=== PATIENT | female | born 1955 | race Caucasian/White ===

== ENCOUNTER → 2020-11-01 11:11 | Outpatient (BNVA) | payer MEDICARE, SELFPAY | PROVIDERS: PCP Internal Medicine; Visit Provider Surgery Vascular Surgery | DX: I83.12 Varicose veins of left lower extremity with inflammation (principal) | CPT/HCPCS: 99202 ==

== ENCOUNTER 2020-11-08 13:03 | Outpatient (REF) | payer MEDICARE, SELFPAY ==
--- NOTE | ~2020-11-08 | US_ITS ---
EXAMINATION: RIGHT and LEFT LOWER EXTREMITY VENOUS ULTRASOUND (Reflux Exam) CLINICAL INDICATION: Left leg varicose veins. History of bilateral vein surgery COMPARISON: None. TECHNIQUE: Color flow triplex imaging and compression Doppler was performed to evaluate both the deep and the superficial systems bilaterally. To evaluate the superficial system, the examination was performed in the upright position. Color-flow Doppler ultrasound and compression ultrasound were utilized. In addition, maneuvers were utilized to demonstrate reflux. FINDINGS: 1. DEEP VENOUS ULTRASOUND OF THE RIGHT LOWER EXTREMITY: Respiratory variation, normal compression and augmented flow are noted in the right common femoral vein as well as the right popliteal vein and there is no evidence of deep venous thrombosis at these locations. There is deep venous reflux seen in the mid femoral vein measuring 0.4 seconds and the popliteal vein measuring 2.8 seconds.. There is no evidence of a Stock's cyst. 2. SUPERFICIAL ULTRASOUND WITH DOPPLER OF RIGHT LOWER EXTREMITY: The right great saphenous vein at the saphenofemoral junction measures 5 mm. The remainder of the right greater saphenous vein is not identified. There is no reflux demonstrated in the right great saphenous vein. The right small saphenous vein measures 3 mm and shows no reflux. There is a radial arm saw operator in the distal calf that measures 2 mm and does not demonstrate reflux. There are varicosities that arise from the remnant of the right greater saphenous vein. These measure between 2 to 3 mm from the thigh to the knee and demonstrate maximum 2.6 seconds reflux. 3. DEEP VENOUS ULTRASOUND OF THE LEFT LOWER EXTREMITY: Respiratory variation, normal compression and augmented flow are noted in the left common femoral vein as well as the left popliteal vein and there is no evidence of deep venous thrombosis at these locations. There is no evidence of reflux in the deep system in either the common femoral vein or the popliteal vein. . There is no evidence of a Stock's cyst. 4. SUPERFICIAL ULTRASOUND WITH DOPPLER OF LEFT LOWER EXTREMITY: Left great saphenous vein is not identified. There is no reflux demonstrated in the left great saphenous vein. The left small saphenous vein is not identified. There is a radial arm saw operator in the proximal thigh that measures 2 mm and does not demonstrate reflux. There are multiple left leg small varicosities measuring 2 mm. There is reflux seen measuring 1.5 seconds in the mid thigh and 0.7 seconds in the distal thigh. US/US venous duplex LE BI IMPRESSION: 1. No evidence of DVT. Right deep venous reflux in the mid femoral and popliteal veins. 2. Greater saphenous veins not identified. Bilateral varicosities with reflux.
== END 2020-11-08 13:04 | disposition home or self-care (01) ==
LOC: HO.US 13:03
PROVIDERS: Visit Provider Surgery Vascular Surgery
DX: I83.12 Varicose veins of left lower extremity with inflammation (principal); I83.893 Varicose veins of bilateral lower extremities with other complications
CPT/HCPCS: 93970

== ENCOUNTER → 2020-11-22 13:52 | Outpatient (BNVA) | payer MEDICARE, SELFPAY | PROVIDERS: PCP Internal Medicine; Visit Provider Surgery Vascular Surgery | DX: I83.12 Varicose veins of left lower extremity with inflammation (principal) | CPT/HCPCS: Q3014 ==

== ENCOUNTER 2021-09-08 14:12 | Outpatient (REF) | payer MEDICARE, SELFPAY ==
--- NOTE | ~2021-09-08 | CT_ITS ---
EXAMINATION: CT CHEST WITHOUT CONTRAST CLINICAL INFORMATION: Pulmonary nodules COMPARISON: Previous CT of the abdomen and pelvis 09/04/2021 TECHNIQUE: Multidetector volumetric CT imaging of the chest was done. Axial MIP volume rendering provided. Sagittal and coronal reformatted images were obtained. This CT examination was performed using dose optimization techniques as appropriate, variously including the following: *Automated exposure control *Adjustment of mA and/or kV according to patient size (this includes techniques or standardized protocols for targeted exams where dose is matched to indication/reason for exam; i.e. extremities or head) *Use of iterative reconstruction technique DLP: 170 mGy-cm FINDINGS: LUNGS: There is left upper lobe and lingular linear scarring or subsegmental atelectasis. There are numerous small left-sided calcified pulmonary nodules. Largest pulmonary nodule measures 3 mm . MEDIASTINUM: The thyroid gland has been removed. The heart does not appear enlarged. There is mild coronary artery. There is a small pericardial effusion. The thoracic aorta is normal in caliber. No enlarged lymph nodes are seen. PLEURA: There is no pleural effusion. No pleural mass or thickening. AXILLA: No enlarged lymph nodes or chest wall mass. UPPER ABDOMEN: The gallbladder has been removed. There is bilateral renal cortical thinning or scarring. There is a 4 mm stone in the upper pole of the right kidney. There is a partially visualized 1.5 cm right renal cyst. OSSEOUS STRUCTURES: There is scoliosis and degenerative changes of the spine. CT/CT chest wo con IMPRESSION: Left upper lobe and lingular scarring or subsegmental atelectasis. Numerous small calcified left pulmonary nodules probably representing old granulomatous disease. Stable abdominal findings from recent CT scan. Fleischner guidelines were followed.
== END 2021-09-08 14:13 | disposition home or self-care (01) ==
LOC: HO.CT 14:12
PROVIDERS: Visit Provider Internal Medicine
DX: R91.1 Solitary pulmonary nodule (principal)
CPT/HCPCS: 71250

== ENCOUNTER 2021-09-27 12:52 | Outpatient (REF) | payer OTHER, SELFPAY ==
--- NOTE | ~2021-09-27 | MM_ITS ---
EXAMINATION: MM SCREENING DIGITAL BREAST TOMOSYNTHESIS, BILATERAL CLINICAL INFORMATION: Screening. Asymptomatic. The lifetime risk of breast cancer based on the Tyrer-Cuzick Model is 5%. COMPARISON: Mammography: 09/29/2015, 09/09/2014 TECHNIQUE: Digital breast tomosynthesis is performed in both the craniocaudal and mediolateral oblique views along with computer-aided detection (CAD). Synthesized 2D images are generated from the tomosynthesis. FINDINGS: There are scattered areas of fibroglandular density (ACR BI-RADS breast composition Category b). Left breast appears similar to prior exam. There is no interval mass or architectural abnormality or abnormal calcifications. The bilateral axilla and skin contours are unremarkable. Right breast has new 1 cm mass with fine spiculated margin mid upper outer quadrant. Patient will be recalled for additional imaging. There is a smooth nodule within 2 cm anterior to the mass which is similar to prior exam and may have a notch-like lymph node hilus suggesting an intramammary node. The right breast also has loosely grouped heterogeneous calcifications central 9:30 o'clock position right breast, some of the calcifications may be vascular. They are mildly increased since prior study. MM/MM tomosynthesis screening BI IMPRESSION: Right: -New 1 cm nodule with fine spiculation mid upper outer quadrant. -Probable intramammary node 2 cm anterior to the new nodule. -Increased calcifications mid 9:30 o'clock position, possibly vascular. Left: -No mammographic evidence of malignancy. ASSESSMENT: BI-RADS 0: Incomplete - Need Additional Imaging Evaluation RECOMMENDATION: 1. Additional views of the right breast (magnification CC and ML views for the calcifications and spot CC and spot ML views for the possible intramammary node). 2. Targeted ultrasound right breast. 3. Radiology department staff will contact the patient for additional imaging. This patient's information was entered into a reminder system with a target due date for their next mammogram.
== END 2021-09-27 12:53 | disposition home or self-care (01) ==
LOC: HO.MAMMO 12:52
PROVIDERS: Visit Provider Internal Medicine
DX: Z12.31 Encounter for screening mammogram for malignant neoplasm of breast (principal)
CPT/HCPCS: 77063; 77067

== ENCOUNTER 2021-10-10 14:11 | Outpatient (REF) | payer OTHER, SELFPAY ==
--- NOTE | ~2021-10-10 | MM_ITS ---
EXAMINATION: MM DIAGNOSTIC DIGITAL BREAST TOMOSYNTHESIS, RIGHT CLINICAL INFORMATION: Recall from screening for new 1 cm mass with fine spiculation mid upper outer right breast, calcifications mid 9:30 o'clock right breast, and probable old intramammary node upper outer right breast. COMPARISON: Mammography: 09/27/2021, 09/29/2015, 09/09/2014, 02/01/2014 TECHNIQUE: Digital breast tomosynthesis is performed. 2D images are generated from the tomosynthesis. The following views are obtained: Magnification CC, magnification ML, spot CC x2, spot ML. Images are reviewed intra-departmentally. FINDINGS: There are scattered areas of fibroglandular density (ACR BI-RADS breast composition Category b). The additional magnification views show loosely grouped heterogeneous coarse calcifications mid 9:30 o'clock position. There are slightly increased from remote prior exam 2015. Stereotactic sampling is recommended. The additional spot views confirm a spiculated mass mid upper outer quadrant approximately 1 cm in size, new finding from prior studies. This will require biopsy, likely under ultrasound guidance. There is a old small nodule anterior to the spiculated mass which is similar in size to prior remote studies likely an intramammary node. Patient left office for transport prior to planned right breast ultrasound and prior to discussing findings. Patient has upcoming appointment for ultrasound and bone density. MM/MM tomosynthesis added views R IMPRESSION: 1. New suspicious spiculated mass mid upper outer quadrant 1 cm in size. Biopsy recommended. 2. Heterogeneous coarse calcifications mid 9:30 o'clock position. Stereotactic biopsy recommended. ASSESSMENT: BI-RADS 0: Incomplete - Need Additional Imaging Evaluation RECOMMENDATION: Targeted right breast ultrasound. This patient's information was entered into a reminder system with a target due date for their next mammogram.
== END 2021-10-10 14:12 | disposition home or self-care (01) ==
LOC: HO.MAMMO 14:11
PROVIDERS: PCP Internal Medicine; Visit Provider Internal Medicine
DX: R92.2 Inconclusive mammogram (principal); R92.1 Mammographic calcification found on diagnostic imaging of breast
CPT/HCPCS: 77061; 77065

== ENCOUNTER 2021-11-02 10:37 | Outpatient (REF) | payer OTHER, SELFPAY ==
--- NOTE | ~2021-11-02 | US_ITS ---
EXAMINATION: US DIAGNOSTIC ULTRASOUND BREAST, RIGHT CLINICAL INFORMATION: Recall from screening for new 1 cm mass with fine spiculation mid upper outer right breast, calcifications mid 9:30 o'clock right breast, and probable old intramammary node upper outer right breast. Patient returned for additional mammographic views on 10/10/2021 but was unable to remain for targeted ultrasound to complete the workup at that time. COMPARISON: 10/10/2021, 09/27/2021 (BI-RADS 0), 09/29/2015. TECHNIQUE: Ultrasound right breast is targeted to the upper and outer quadrants and right axilla. Grayscale imaging and color Doppler are performed without and with harmonics. FINDINGS: The spiculated mass on mammography is visible on ultrasound as an irregular hypoechoic lesion 9:30 o'clock position 7 cm from nipple measuring under 1 cm. There is posterior shadowing and some internal color flow on Doppler. Finding is suspicious and ultrasound-guided core biopsy is recommended. There is a small cyst in the upper outer right breast likely corresponding to the nodule noted on mammography. This is anechoic with increased through-transmission of sound and measures under 1 cm. Additional imaging right axilla shows no lymphadenopathy. Results are discussed with the patient at time of visit. Two biopsies of the right breast are recommended: ultrasound-guided biopsy of the irregular hypoechoic mass, and. Stereotactic biopsy right breast for the heterogeneous coarse calcifications mid 9:30 o'clock position. US/US breast RT limited IMPRESSION: 1. Spiculated mass mid upper outer right breast. 2. Heterogeneous coarse calcifications mid 9:30 o'clock position. 3. No lymphadenopathy demonstrated. ASSESSMENT: BI-RADS 4: Suspicious RECOMMENDATION: 1. Ultrasound-guided biopsy right breast mass. 2. Stereotactic biopsy right breast calcifications. This patient's information was entered into a reminder system with a target due date for their next mammogram.
--- NOTE | ~2021-11-02 | MM_ITS ---
EXAMINATION: BONE DENSITOMETRY CLINICAL INDICATION: Asymptomatic menopausal state. Encounter for screening for osteoporosis. Postmenopausal. COMPARISON: Previous BD dated 04/14/2009 and baseline BD dated 12/10/2006. TECHNIQUE: Using a [employer] DXA System (software version: 13.1) manufactured by [employer] dual-energy x-ray absorptiometry was performed of the lumbar spine and left hip. The images are of good technical quality. Summary results are attached. FINDINGS: AP SPINE L1-L4: Current: BMD 1.243 g/cm2, Z-score 1.7, T-score 0.5, normal, 10.1% increase from previous, 6.1% increase from baseline (<5% change is not significant). Prior: BMD 1.129 g/cm2. Baseline: BMD 1.172 g/cm2. LEFT FEMUR, NECK: Current: BMD 0.896 g/cm2, Z-score 0.3, T-score -1.0, normal. Prior: BMD 0.978 g/cm2. Baseline: BMD 0.994 g/cm2. LEFT FEMUR, TOTAL: Current: BMD 0.950 g/cm2, Z-score 0.6, T-score -0.5, normal, 4.3% decrease from previous, 5.8% decrease from baseline (<5% change is not significant). Prior: BMD 0.993 g/cm2. Baseline: BMD 1.008 g/cm2. IDENTIFIED RISK FACTORS: Bilateral oophorectomy. Hysterectomy. Secondary osteoporosis, (early menopause). Height loss. HISTORY OF FRACTURE: None listed. MEDICATIONS: Calcium or multivitamin. Vitamin D. MM/XR DEXA axial skeleton IMPRESSION: 1. DIAGNOSIS: Normal bone density based on the lowest T-score value of -1.0 in the femoral neck applying World Health Organization criteria. 2. 10-YEAR FRACTURE RISK PREDICTION, FRAX: According to the guidelines, FRAX calculation should only be performed on patients in the osteopenia bone density category. Therefore, FRAX was not performed on this patient. 3. Treatment Recommendations: NOF guidelines recommend consideration for treatment in postmenopausal women and men age 50 and older presenting with the following: -A hip or vertebral (clinical or morphometric) fracture. -T-score less than or equal to -2.5 at the femoral neck or spine after appropriate evaluation to exclude secondary causes. -Low bone mass at the hip or spine and a 10-year fracture probability by FRAX of greater than or equal to 3% for hip fracture or greater than or equal to 20% for major osteoporotic fracture based on the [place] adapted WHO algorithm. 4. Other Recommendations: All treatment decisions require clinical judgment and consideration of individual patient factors, including patient preferences, comorbidities, previous drug use, risk factors not captured in the FRAX model (e.g. frailty, falls, vitamin D deficiency, increased bone turnover, interval significant decline in bone density) and possible under or overestimation of fracture risk by FRAX. FUTURE SCAN RECOMMENDATION: People with diagnosed cases of osteoporosis or at high risk for fracture should have regular bone mineral density tests. For patients eligible for Medicare, routine testing is allowed once every 2 years. The testing frequency can be increased to one year for patients who have rapidly progressing disease, those who are receiving or discontinuing medical therapy to restore bone mass, or have additional risk factors.
== END 2021-11-02 10:38 | disposition home or self-care (01) ==
LOC: HO.MAMMO 10:37
PROVIDERS: PCP Internal Medicine; Visit Provider Internal Medicine
DX: Z13.820 Encounter for screening for osteoporosis (principal); R92.1 Mammographic calcification found on diagnostic imaging of breast; N63.11 Unspecified lump in the right breast, upper outer quadrant; Z78.0 Asymptomatic menopausal state; Z79.899 Other long term (current) drug therapy
CPT/HCPCS: 76642; 77080

== ENCOUNTER 2021-11-07 09:09 | Outpatient (REF) | payer OTHER, SELFPAY ==
--- NOTE | ~2021-11-07 | US_ITS ---
PROCEDURE: US GUIDED BREAST BIOPSY, RIGHT CLINICAL INFORMATION: Suspicious mass 9:00 position COMPARISON: November 02, 2021 and studies dating back to February 01, 2014 PROCEDURAL DETAILS: The details of the procedure, as well as the risks, benefits, and alternatives to the procedure were explained to the patient in detail and all of her questions were answered, after which written informed consent was obtained. Site and side were confirmed. Prior to the procedure, sonography revealed irregularly marginated hypoechoic mass with distal sound shadowing.. A time-out was performed, the lesion intended for biopsy was targeted, and the skin of the breast was then prepped and draped in the usual sterile fashion. Using sonographic guidance, sterile technique, and 1% lidocaine without epinephrine for local anesthesia, multiple automated core biopsies were obtained through the targeted area with a 14G spring loaded Achieve core biopsy device. There was real-time confirmation of appropriate needle passage. Sampling was documented. At the completion of tissue sampling, a single open coil metallic clip was deposited at the biopsy site. There was no evidence of significant immediate complication. There was limited bleeding during the procedure. SPECIMEN: An appropriate sample was obtained. DIGITAL POST-PROCEDURE MAMMOGRAPHY: Breast density: The tissue contains scattered areas of fibroglandular density. BI-RADS version 5, category B. The 2 clips from previous biopsies are noted in place. There is evidence for hematoma about the lateral aspect of the right breast. The postprocedure 2-view direct digital mammogram reveals satisfactory positioning of the biopsy clip. The patient tolerated the procedure well and, after assuring adequate hemostasis, was discharged in good condition after reviewing postbiopsy breast care instructions. Final pathology results are pending. US/US breast ndl core biopsy RT IMPRESSION: 1. No immediate complication from ultrasound-guided percutaneous biopsy right breast other than for some limited bleeding.. 2. Ultrasound was used to localize and guide marker clip placement. 3. The 2-view direct digital postprocedure mammogram reveals satisfactory positioning of the biopsy clip. 4. Final pathology results are pending. A separate report with final recommendations will be issued once these results are made available.
--- NOTE | ~2021-11-07 | MM_ITS ---
EXAMINATION: STEREOTACTIC TOMOSYNTHESIS-GUIDED VACUUM-ASSISTED BREAST BIOPSY, RIGHT SPECIMEN RADIOGRAPH, RIGHT WRIST POST PROCEDURE DIGITAL MAMMOGRAM, RIGHT BREAST CLINICAL INFORMATION: Indeterminate grouping of calcifications about the lateral aspect of the right breast.. COMPARISON: November 02, 2021 and studies dating back to April 17, 2012. TECHNIQUE/PROCEDURE: Informed consent was obtained from the patient after discussion of the benefits, risks, and alternatives to biopsy today. Patient appeared to understand. Gave opportunity for questions. Patient signed consent form. BIOPSY TABLE: [employer]one Biopsy System. LESION: Grouping of indeterminate calcifications.. LOCAL ANESTHESIA: 8 mL 1% lidocaine; 18 mL 1% lidocaine with epinephrine. DERMATOTOMY: Single skin debra dermatotomy performed. NEEDLE: [employer] Eviva 9-gauge vacuum assisted core biopsy device. APPROACH: lateral medial. TARGETING: Digital breast tomosynthesis used for targeting. CORES: 12. CLIP: [employer] SecurMark Buckle-shaped marker. SPECIMEN RADIOGRAPH: Specimen radiograph is taken in separate room using digital mammography. The index calcifications are in the excised cores. POST PROCEDURE UNILATERAL DIGITAL MAMMOGRAM: The post biopsy mammogram is performed in separate room using separate digital mammography equipment from the biopsy procedure. 2 views are obtained. There are scattered areas of fibroglandular density (breast composition category: b). The clip marker is in position. The calcifications are markedly decreased at the biopsy site. No gross hematoma. The patient tolerated the procedure well. No immediate complications. Home instructions reviewed with the patient. Final pathology results are pending. MM/MM stereotactic biopsy RT IMPRESSION: 1. Digital tomosynthesis-guided core biopsy right breast with clip placement. 2. Specimen radiograph taken and post procedure mammogram. There is satisfactory positioning of the biopsy clip. 3. Final pathology results pending. An addendum report will be issued.
--- NOTE | ~2021-11-07 | MM_ITS ---
EXAMINATION: MM DIAGNOSTIC DIGITAL BREAST TOMOSYNTHESIS, RIGHT CLINICAL INFORMATION: Status post ultrasound-guided core biopsy for suspicious mass and stereotactic core biopsy report indeterminate calcifications lateral aspect of the right breast. COMPARISON: Mammography: Ultrasound of stereotactic core biopsies from November 07, 2021 as well as studies dating back to February 01, 2014. TECHNIQUE: Digital breast tomosynthesis is performed in both the craniocaudal and mediolateral oblique views along with computer-aided detection (CAD). Synthesized 2D images are generated from the tomosynthesis. FINDINGS: There are scattered areas of fibroglandular density (ACR BI-RADS breast composition Category b). 2 clips from today's ultrasound and stereotactic core biopsy is seen in position. There is some increased parenchymal density present related to blood products. MM/MM tomosynthesis diagnostic RT IMPRESSION: Biopsy clips in good position lateral aspect of the right breast. ASSESSMENT: BI-RADS (Post Biopsy Clip Placement)
[2021-11-07] MEDS: Lidocaine HCl 1 % 20 ML VIAL 9 ML SUBCUT (11:21)
[2021-11-07] MEDS: Sodium Bicarbonate 8.4% 50 MEQ/50 ML VIAL SUBCUT (11:26)
== END 2021-11-07 09:10 | disposition home or self-care (01) ==
LOC: HO.MAMMO 09:09
PROVIDERS: Visit Provider Surgery
DX: R92.8 Other abnormal and inconclusive findings on diagnostic imaging of breast (principal); R92.1 Mammographic calcification found on diagnostic imaging of breast
CPT/HCPCS: 19081; 19083; 77061; 77065; 88305; 88342; 88360; 99202; A4648

== ENCOUNTER → 2021-11-10 09:41 | Outpatient (BNVA) | payer OTHER, SELFPAY | PROVIDERS: PCP Internal Medicine; Visit Provider Surgery | DX: C50.811 Malignant neoplasm of overlapping sites of right female breast (principal); Z17.0 Estrogen receptor positive status [ER+] | CPT/HCPCS: 99212 ==

== ENCOUNTER 2021-11-24 13:25 | Outpatient (REF) | payer OTHER, SELFPAY ==
[2021-11-24 13:57] LABS: MANUAL DIFF FLAG NO
[2021-11-24 14:01] LABS: Basophils Percent Auto 0.4 % (0-2); Eosinophils Absolute Auto 0.1 X10*3/uL (0.0-0.4); Eosinophils Percent Auto 1.5 % (0-4); Hematocrit 36.2 % (37.0-47.0); Hemoglobin 12.3 g/dl (12.0-16.0); Imm Gran Abs Auto 0.02 X10*3/uL (0.00-0.03); Imm Gran Pct Auto 0.2 % (0.0-0.4); Lymphocytes Absolute Auto 1.5 X10*3/uL (1.2-4.9); Mean Corpuscular Volume 91.2 fL (80.0-98.0); Mean Platelet Volume 9.4 fL (9.4-12.3); Monocytes Absolute Auto 0.5 X10*3/uL (0.1-1.2); Monocytes Percent Auto 6.3 % (2-11); Neutrophils Absolute Auto 6.2 x10*3/uL (2.0-8.3); Neutrophils Percent Auto 73.6 % (45-73); Platelet Count 266 X10*3/uL (160-400); Red Blood Count 3.97 X10*6/uL (4.20-5.50); Red Cell Distribution Width 12.2 % (11.0-16.0); White Blood Count 8.4 X10*3/uL (4.8-10.8)
[2021-11-24 14:41] LABS: Alanine Aminotransferase 14 U/L (0-31); Albumin Level 4.1 g/dL (3.5-5.0); Alkaline Phosphatase 59 U/L (39-117); Anion Gap 12 (12-20); Aspartate Amino Transferase 25 U/L (5-31); Bilirubin Total 0.6 mg/dL (0.0-1.0); Blood Urea Nitrogen 13 mg/dL (9-16); Carbon Dioxide 28 mmol/L (22-29); Chloride 98 mmol/L (96-108); Estimated Glomerular Filt Rate > 60; Glucose Random 96 mg/dL (60-115); Magnesium 1.7 mg/dL (1.6-2.6); Phosphorus 3.3 mg/dL (2.7-4.5); Potassium 4.4 mmol/L (3.3-5.1); Sodium 134 mmol/L (135-145); Total Protein 6.7 g/dL (6.5-8.0)
[2021-11-24 14:54] LABS: Uric Acid 6.6 mg/dL (2.4-5.7)
[2021-11-24 15:00] LABS: Free T4 (Free Thyroxine) 0.92 ng/dL (0.71-1.85); Thyroid Stimulating Hormone 1.68 uIU/mL (0.32-4.0); Vitamin D 25-OH Total 40.2 ng/mL (>30)
[2021-11-27 14:36] LABS: PTHI 47 pg/mL (16-77)
[2021-11-28 15:51] LABS: IgA <5 mg/dL (70-320); IgG 1025 mg/dL (600-1540); IgM 222 mg/dL (50-300)
== END 2021-11-24 13:26 | disposition home or self-care (01) ==
LOC: HO.LAB 13:25
PROVIDERS: Absent Provider Internal Medicine; PCP Internal Medicine; Visit Provider Internal Medicine Nephrology
DX: Z00.01 Encounter for general adult medical examination with abnormal findings (principal); E03.9 Hypothyroidism, unspecified; N20.0 Calculus of kidney; E21.0 Primary hyperparathyroidism; I12.9 Hypertensive chronic kidney disease with stage 1 through stage 4 chronic kidney disease, or unspecified chronic kidney disease; N18.32 Chronic kidney disease, stage 3b; Z78.0 Asymptomatic menopausal state
CPT/HCPCS: 36415; 80053; 82306; 82784; 83735; 83970; 84100; 84439; 84443; 84450; 84460; 84550; 85025; 86334

== ENCOUNTER 2021-11-27 06:53 | Day surgery (SDC) | payer OTHER, SELFPAY ==
[2021-11-21 11:52] VITALS: BMI 29.3
--- NOTE | 2021-11-23 13:59 | P.CONAN_ITS ---
Documented by User: Heather Panda NP 11/24/21 15:18 HPI - Anesthesia Eval Consult details Narrative: 66yo F for Right Breast Lumpectomy/Needle, [place] Node Biopsy Hx of hyponatremia, no etiology identified by PCP. Results: 127 (L) on 08/2021, 137 (WNL) 08/2020. Per PCP, likely d/t pt stopping levothyroxine. Has since restarted and labs pending. T/C to patient 11/24 and instructed to come in today to have labs drawn. Na improved to 134 PMFSH Active Problems Active Problems: All Active Problems (Updated 11/21/21 @ 11:52 by Keyla Vo, KAM) Varicose veins of left lower extremity with inflammation (Acute) Sebaceous cyst (Acute) Myalgia (Acute) Invasive ductal carcinoma of right breast (Acute) Hyponatremia (Acute) Mixed dyslipidemia (Acute) Acquired hypothyroidism (Acute) Pneumococcal vaccination declined (Acute) Refused influenza vaccine (Acute) Mixed hearing loss (Acute) Degenerative disc disease, cervical (Acute) Pulmonary nodule seen on imaging study (Acute) Annual visit for general adult medical examination with abnormal findings (Acute) Hypothyroidism (Acute) Hypertension (Acute) Sleeping difficulties (Acute) Past Medical History Medical History Acquired hypothyroidism Annual visit for general adult medical examination with abnormal findings Breast calcification, right COVID-19 vaccine series completed CREST syndrome Degenerative disc disease, cervical Gout History of MRSA infection Hypertension Hypertriglyceridemia Hyponatremia Hypothyroidism Invasive ductal carcinoma of right breast Mixed dyslipidemia Mixed hearing loss Nephrolithiasis Pneumococcal vaccination declined Pulmonary nodule seen on imaging study Refused influenza vaccine Sleeping difficulties Family History Family History Brother No problems noted. Daughter Mental health disorder Son Mental health disorder Paternal Grandmother Colon cancer Surgical History Surgical History H/O colonoscopy History of bladder surgery History of cholecystectomy History of hysterectomy History of partial thyroidectomy History of tubal ligation Social History Social History Housing: Apartment Are you a primary physician primary care sports medicine to a significant other at home: No Do you presently have visiting nurse or other home services: No Patient Tobacco Use Status: Former Tobacco user Quit Date: age 30's Tobacco use type: Cigarette Years Smoked: 10yrs e-Cigarette/Vaping Use: Never Used service: No Current occupational status: retired Meds Allergies Allergy/AdvReac Type Severity Reaction Status Date / Time latex Allergy Intermediate Rash Verified 11/27/21 07:11 Exam Exam Date and Time: November 23, 2021 1359 Height,Weight and Vital Signs: Height 5 ft 6 in Weight 82.554 kg Pertinent Lab Results Pertinent Lab Results: Laboratory Tests 11/24/21 11/24/21 13:56 13:56 WBC 8.4 Hgb 12.3 Hct 36.2 L Plt Count 266 Sodium 134 L Potassium 4.4 Chloride 98 Carbon Dioxide 28 BUN 13 Creatinine 0.85 Laboratory Tests 11/24/21 13:56 TSH 1.68 Free T4 0.92 Assessment and Plan Assessment Anesthesia Assessment: Chart Reviewed Documented by User: Chari Ag MD 11/27/21 10:34 [facility] Past Medical History Medical History Acquired hypothyroidism Annual visit for general adult medical examination with abnormal findings Breast calcification, right COVID-19 vaccine series completed CREST syndrome Degenerative disc disease, cervical Gout History of MRSA infection Hypertension Hypertriglyceridemia Hyponatremia Hypothyroidism Invasive ductal carcinoma of right breast Mixed dyslipidemia Mixed hearing loss Nephrolithiasis Pneumococcal vaccination declined Pulmonary nodule seen on imaging study Refused influenza vaccine Sleeping difficulties Family History Family History Brother No problems noted. Daughter Mental health disorder Son Mental health disorder Paternal Grandmother Colon cancer Surgical History Surgical History H/O colonoscopy History of bladder surgery History of cholecystectomy History of hysterectomy History of partial thyroidectomy History of tubal ligation History of Problems with Anesthesia: No Social History Social History Housing: Apartment Are you a primary physician primary care sports medicine to a significant other at home: No Do you presently have visiting nurse or other home services: No Patient Tobacco Use Status: Former Tobacco user Quit Date: age 30's Tobacco use type: Cigarette Years Smoked: 10yrs e-Cigarette/Vaping Use: Never Used service: No Current occupational status: retired Meds Allergies Allergy/AdvReac Type Severity Reaction Status Date / Time latex Allergy Intermediate Rash Verified 11/27/21 07:11 Exam Airway Mallampati Class: II TM Dist: >3cm Neck ROM: Full Loose/Missing/Broken Teeth: No Heart: RRR Lungs: CTA Assessment and Plan Assessment Anesthesia Assessment: Anesthesia Plan Discussed Final Anesthetic Review History of Problems with Anesthesia: No NPO: Yes ASA Class: II Final Preanesthetic Review: Meds/Allgs Chart Reviewed, Consent Obtained/Reviewed and Anes Risks/Benef Reviewed Patient Risk: Low Procedure Risk: Low Anesthetic Plan Anesthetic Plan: GA Disposition: Standard PACU
[2021-11-27] VITALS (8 sets, daily range): BP systolic 127–149; BP diastolic 55–65; PULSE 51–65; RESP 16–19; TEMP 36.2–36.7; O2SAT 95–100
--- NOTE | ~2021-11-27 | MM_ITS ---
EXAMINATION: MM MAMMOGRAM GUIDED NEEDLE LOCALIZATION BREAST, RIGHT MM NEEDLE LOCALIZATION SPECIMEN FROM THE RIGHT BREAST CLINICAL INFORMATION: Recent ultrasound guided core biopsy right breast nodule consistent with invasive ductal cancer. Stereotactic biopsy right breast same date with T shaped clip marker (Fibroadenomatous change and calcifications. No atypia or malignancy). COMPARISON: Stereotactic and ultrasound-guided core biopsies right breast 11/07/2021, mammography 11/07/2021, 10/10/2021, 09/27/2021, 09/29/2015. TECHNIQUE NEEDLE LOC: Proper informed consent is obtained from the patient after discussion of the procedure, potential risks and complications, and alternatives including declining the procedure today. Patient was given an opportunity for questions. The patient appeared to understand. The patient consented to the procedure and signed the consent form. GUIDANCE: Digital mammography. APPROACH: Lateral medial. TARGET: HydroMARK open coil clip. ANESTHESIA: Carbonated lidocaine 1%: 4 mL. LOCALIZATION MARKER: Flora MammaLok. 5 cm length. The skin is prepped and local anesthesia administered. The needle is positioned and position assessed with mammography. The wire is hooked into position. Grover needle protector placed. The patient tolerated the procedure well and had no immediate complication. Following the procedure, 4% lidocaine ointment was administered to the left areola and covered with Tegaderm in anticipation of nuclear lymphoscintigraphy injection for sentinel lymph node mapping. Procedure results called to certified medical biller () for Dr. Caruso. TECHNIQUE SPECIMEN RADIOGRAPH: Imaging of the excised specimen is performed using digital mammography in 1 view. FINDINGS SPECIMEN RADIOGRAPH: The specimen shows the needle and hookwire are delivered intact. The open coil biopsy clip marker is identified in the specimen adjacent to the localization needle. The benign biopsy site T shaped clip is also included in the specimen from the recent stereotactic biopsy. Results were called to Dr. Chris Caruso in the operating room at the time of imaging. MM/MM needle loc RT IMPRESSION: 1. Status post right breast needle localization with wire hooked into position. 2. Post operative specimen radiograph obtained.
--- NOTE | ~2021-11-27 | NM_ITS ---
EXAMINATION: NM LYMPH SCINTIGRAPHY CLINICAL INFORMATION: Right breast ductal carcinoma. COMPARISON: None TECHNIQUE: Following explaining right breast lymphoscintigraphy procedure, benefits and risk by Dr. Mesa, even consent was obtained. 4% lidocaine cream was applied around the right breast half no prior to sentinel node procedure. The cream surrounding the areola was cleaned in usual sterile fashion. 0.5 mCi of 99 m Tilmanocept was divided in 4 equal doses and injected subdermally in 4 quadrants surrounding the right breast. Imaging was obtained approximately 30 minutes later. Patient tolerated procedure extremely well FINDINGS: There are 4 areas of isotope activity surrounding the right breast. There is solitary sentinel node activity seen in the right axilla consistent with sentinel node. NM/NM sentinel node w imaging IMPRESSION: Solitary sentinel node right axilla on right breast lymphoscintigraphy.
[2021-11-27] MEDS: Lactated Ringers 1,000 ML 100 ML IVCONT (07:55)
[2021-11-27] MEDS: Lidocaine HCl 1 % 20 ML VIAL 9 ML SUBCUT (09:11)
[2021-11-27] MEDS: Sodium Bicarbonate 8.4% 50 MEQ/50 ML VIAL SUBCUT (09:12)
--- NOTE | 2021-11-27 10:15 | MHC.SHP ---
Pre-Procedural Eval Section A Date of Service: 11/27/21 The patient is an INPATIENT: No Changes since office visit: Yes Patient answered all questions; No Cold of Flu in the past 2 weeks, No New Medical Problems and No Changes in Medication The History & Physical has been completed within 30 days and I have reviewed it.: Yes Section B Chief Complaint: Intraductal carcinoma in situ of right breast Allergies: Allergies Allergy/AdvReac Type Severity Reaction Status Date / Time latex Allergy Intermediate Rash Verified 11/27/21 07:11 Plan Diagnosis/Plan: Unchanged I have reviewed the history and physical and performed a pertinent physical examination on my patient. No changes have occurred unless specified.
--- NOTE | 2021-11-27 12:30 | P.OP_ITS ---
Operative Note Operative Note Date of Service: 11/27/21 Narrative: Preoperative diagnosis:Invasive ductal carcinoma right breast Postoperative diagnosis:same Procedure:Lumpectomy with needle localization right breast, right sentinel node biopsy Surgeon: Chris Caruso MD Car Rental Manager: Juliane Thurston PA-C Anesthesia:general LMA Indications for procedure: 66-year-old female patient presenting with a density noted on mammogram and ultrasound of the right breast. There is also a cluster of calcifications. The site of clustered calcifications were biopsied determined to be benign. The density however revealed invasive ductal carcinoma. She presents today for a lumpectomy with needle localization, right axillary sentinel node biopsy. Operative findings: Localizing needle and clip were noted within the specimen. Margins appeared close to the superior margin there for a wider excision was performed of the superior margin. A single sentinel node was identified with counts of 800. No other palpable nodes or radioactive activity could be identified. Specimen: 1. Right breast lumpectomy, 2. Right axillary sentine node 1, 3. Additional axillary tissue, 4. Superior margin right breast wider excision. Estimated blood loss: 15 mL Complications: None Procedure details: Patient was brought to the OR placed in a supine position. After administering general anesthesia the patient's right breast was prepped with ChloraPrep and draped in a sterile fashion. A surgical time-out was called and the consent confirmed. Patient received preoperative antibiotics and Venodyne boots were in place. Local anesthesia consisting of 0.25 Sensorcaine was infiltrated around the localizing needle in the 9 o'clock position right breast. A curvilinear incision was made around the localizing needle. Incision was then made through skin subcutaneous tissue. Superior and inferior skin flaps were then created with electrocautery. A core of tissue surrounding the localizing needle was then excised using electrocautery. The specimen was removed from the breast and marked with a long suture on the lateral margin, short suture on the superior margin, and looped suture in the posterior margin. This was sent to x-ray for specimen x-ray followed by pathology for immediate gross. Attention was then directed to the right axilla. The gamma probe was used to identify the area of increased activity. A curvilinear incision was made at this point in a transverse fashion. This was carried out through subcutaneous tissue and past clavipectoral fascia. Using the gamma probe as a guide area of increased activity was isolated and grasped using an Allis clamp. A palpable node was noted at this location. This was excised using electrocautery. A total of 100 counts were noted using the gamma probe. Additional examination of the axilla revealed no further radio activity within the axilla. No other palpable nodes were identified within the axilla. After receiving the results of the immediate gross the breast excision, additional superior margins were obtained using electrocautery. This was sent as a separate specimen. Wounds were checked for hemostasis, irrigated with saline solution and suctioned dry. Hemostasis was assured using electrocautery. Beginning in the axilla deep 5 in pectoral fascia was reapproximated using interrupted 3-0 Polysorb sutures. Dermis was reapproximated using interrupted 3-0 Polysorb sutures. Skin was then closed using a running subcuticular 4-0 Polysorb suture. Deep breast tissue was reapproximated using interrupted 3-0 Polysorb sutures. Superficial breast tissue and dermis were then reapproximated using interrupted 3-0 Polysorb sutures. Skin was closed using a running subcuticular 4-0 Polysorb suture. Steri-Strips 2 x 2 gauze and Tegaderm were then applied. The patient tolerated the procedure well. Sponge, instrument, and needle counts were reported as correct. The patient was transferred to PACU in stable condition. Breast Burnside Node Biopsy Substrate(s) used for sentinel node biopsy in the non-neoadjuvant setting: Radiotracer Substrate(s) used for sentinel node biopsy in the neoadjuvant setting: N/A All colored nodes or non-colored nodes present at the end of a dye filled lymphatic channel were removed, if dye was used as the substrate for localization: N/A All significantly radioactive nodes were removed, if radionuclide was used as the substrate for localization: Yes All palpably suspicious nodes were removed, if present: Yes If clips were placed in pathology-involved nodes, those nodes were identified and removed: N/A General Surg. - Synoptic Notes Breast Burnside Node Biopsy Substrate(s) used for sentinel node biopsy in the non-neoadjuvant setting: Radiotracer Substrate(s) used for sentinel node biopsy in the neoadjuvant setting: N/A All colored nodes or non-colored nodes present at the end of a dye filled lymphatic channel were removed, if dye was used as the substrate for localization: N/A All significantly radioactive nodes were removed, if radionuclide was used as the substrate for localization: Yes All palpably suspicious nodes were removed, if present: Yes If clips were placed in pathology-involved nodes, those nodes were identified and removed: N/A
[2021-11-27] MEDS: Acetaminophen 325 MG TABLET 650 MG PO (13:07)
[2021-11-27] MEDS: oxyCODONE HCl Immed Release 5 MG TABLET PO (13:08)
== END 2021-11-27 14:04 | disposition home or self-care (01) ==
PROVIDERS: PCP Internal Medicine; Visit Provider Surgery
PROC: (CPT 19301; principal; 2021-11-27 11:30)
PROC: (CPT 19301; 2021-11-27 11:30)
DX: C50.911 Malignant neoplasm of unspecified site of right female breast (principal); Z17.0 Estrogen receptor positive status [ER+]; I10 Essential (primary) hypertension; E03.9 Hypothyroidism, unspecified; Z79.899 Other long term (current) drug therapy; Z91.040 Latex allergy status
CPT/HCPCS: 19301; 38525; 38900; 19281; 78195; 88305; 88307; 88329; 88342; A4648; A9520; J0690; J2250; J3010

== ENCOUNTER 2021-11-27 07:29 | Outpatient (REF) | payer OTHER, SELFPAY ==
[2021-11-27 07:48] LABS: Appearance Urine CLEAR; Color Urine STRAW; Glucose Urine UA NEG (NEG); Leukocyte Esterase Urine TRACE (NEG); Nitrite Urine NEG (NEG); PH 5.5 (5.0-8.0); Specific Gravity - Urine <= 1.005 (1.005-1.025); Urine Blood TRACE (NEG); Urine Ketones NEG (NEG); Urine Protein NEG (NEG-TRACE)
[2021-11-27 08:22] LABS: Bacteria Urine TRACE /LPF; RBC Urine 0-2 /HPF (0); Squamous Epithelial Cell Urine TRACE /LPF
[2021-11-27 08:48] LABS: Creatinine Urine 22.05 mg/dL; Total Protein Urine Random < 7 mg/dL (<12)
== END 2021-11-27 07:30 | disposition home or self-care (01) ==
LOC: HO.LNP 07:29
PROVIDERS: Visit Provider Internal Medicine Nephrology
DX: N20.0 Calculus of kidney (principal); I12.9 Hypertensive chronic kidney disease with stage 1 through stage 4 chronic kidney disease, or unspecified chronic kidney disease; N18.32 Chronic kidney disease, stage 3b; E21.0 Primary hyperparathyroidism
CPT/HCPCS: 81001; 82043; 84156

== ENCOUNTER → 2021-12-05 13:55 | Outpatient (BNVA) | payer OTHER, SELFPAY | PROVIDERS: PCP Internal Medicine; Referring Provider Internal Medicine; Visit Provider Surgery | DX: Z48.3 Aftercare following surgery for neoplasm (principal); C50.811 Malignant neoplasm of overlapping sites of right female breast; Z17.0 Estrogen receptor positive status [ER+] | CPT/HCPCS: 99212 ==

== ENCOUNTER 2022-02-12 13:54 | Outpatient (REF) | payer OTHER, SELFPAY ==
[2022-02-12 15:12] LABS: Free T4 (Free Thyroxine) 0.86 ng/dL (0.71-1.85); Thyroid Stimulating Hormone 1.33 uIU/mL (0.32-4.0); Vitamin D 25-OH Total 38.5 ng/mL (>30)
[2022-02-12 15:31] LABS: Anion Gap 14 (12-20); Blood Urea Nitrogen 12 mg/dL (9-16); Carbon Dioxide 27 mmol/L (22-29); Chloride 99 mmol/L (96-108); Estimated Glomerular Filt Rate 59; Glucose Fasting 91 mg/dL (60-99); Potassium 4.8 mmol/L (3.3-5.1); Sodium 135 mmol/L (135-145)
[2022-02-12 15:49] LABS: Folate > 20.0 ng/mL (> or = 4.0); Vitamin B12 514 pg/mL (200-900)
== END 2022-02-12 13:55 | disposition home or self-care (01) ==
LOC: HO.LAB 13:54
PROVIDERS: PCP Internal Medicine; Visit Provider Internal Medicine
DX: E87.1 Hypo-osmolality and hyponatremia (principal); N95.9 Unspecified menopausal and perimenopausal disorder; R53.83 Other fatigue; E03.9 Hypothyroidism, unspecified
CPT/HCPCS: 36415; 80048; 82306; 82607; 82746; 84439; 84443

== ENCOUNTER → 2022-03-20 13:44 | Outpatient (BNVA) | payer OTHER, SELFPAY | PROVIDERS: PCP Internal Medicine; Referring Provider Internal Medicine; Visit Provider Surgery | DX: C50.411 Malignant neoplasm of upper-outer quadrant of right female breast (principal); Z17.0 Estrogen receptor positive status [ER+]; Z92.3 Personal history of irradiation | CPT/HCPCS: 99212 ==

== ENCOUNTER → 2022-07-31 13:17 | Outpatient (BNVA) | payer OTHER, SELFPAY | PROVIDERS: PCP Internal Medicine; Visit Provider Surgery | DX: C50.811 Malignant neoplasm of overlapping sites of right female breast (principal); Z17.0 Estrogen receptor positive status [ER+]; I89.0 Lymphedema, not elsewhere classified; Z92.3 Personal history of irradiation | CPT/HCPCS: 99212 ==

== ENCOUNTER 2022-08-17 11:23 | Outpatient (REF) | payer OTHER, MEDICAID, SELFPAY ==
[2022-08-17 11:50] LABS: MANUAL DIFF FLAG NO
[2022-08-17 12:38] LABS: Basophils Percent Auto 0.6 % (0-2); Eosinophils Absolute Auto 0.2 X10*3/uL (0.0-0.4); Eosinophils Percent Auto 2.8 % (0-4); Hematocrit 39.4 % (37.0-47.0); Hemoglobin 13.2 g/dl (12.0-16.0); Imm Gran Abs Auto 0.02 X10*3/uL (0.00-0.03); Imm Gran Pct Auto 0.3 % (0.0-0.4); Lymphocytes Percent Auto 14.5 % (20-40); Mean Corpuscular HGB Conc 33.5 g/dl (31.0-35.0); Mean Corpuscular Hemoglobin 30.6 pg (27.0-33.0); Mean Corpuscular Volume 91.4 fL (80.0-98.0); Mean Platelet Volume 9.7 fL (9.4-12.3); Monocytes Absolute Auto 0.5 X10*3/uL (0.1-1.2); Monocytes Percent Auto 7.8 % (2-11); Neutrophils Absolute Auto 5.1 x10*3/uL (2.0-8.3); Platelet Count 277 X10*3/uL (160-400); Red Blood Count 4.31 X10*6/uL (4.20-5.50); Red Cell Distribution Width 11.9 % (11.0-16.0); White Blood Count 6.9 X10*3/uL (4.8-10.8)
[2022-08-17 13:41] LABS: Estimated Average Glucose 100 mg/dL; Hemoglobin A1c % 5.1 %
[2022-08-17 13:50] LABS: Alanine Aminotransferase 22 U/L (0-31); Alkaline Phosphatase 80 U/L (39-117); Anion Gap 13 (12-20); Aspartate Amino Transferase 30 U/L (5-31); Bilirubin Total 0.6 mg/dL (0.0-1.0); Blood Urea Nitrogen 11 mg/dL (9-16); Calcium 9.7 mg/dL (8.4-10.2); Carbon Dioxide 29 mmol/L (22-29); Chloride 100 mmol/L (96-108); Cholesterol 274 mg/dL; Estimated Glomerular Filt Rate > 60; Glucose Fasting 98 mg/dL (60-99); HDL Cholesterol 34 mg/dL; LDL Cholesterol Calculated 165 mg/dl; Potassium 4.7 mmol/L (3.3-5.1); Sodium 137 mmol/L (135-145); Total Protein 6.6 g/dL (6.5-8.0); Triglycerides 376 mg/dL
[2022-08-17 14:07] LABS: Free T4 (Free Thyroxine) 0.81 ng/dL (0.71-1.85); Thyroid Stimulating Hormone 1.71 uIU/mL (0.32-4.0)
== END 2022-08-17 11:24 | disposition home or self-care (01) ==
LOC: HO.LAB 11:23
PROVIDERS: PCP Internal Medicine; Visit Provider Internal Medicine
DX: Z00.00 Encounter for general adult medical examination without abnormal findings (principal); E03.9 Hypothyroidism, unspecified
CPT/HCPCS: 36415; 80053; 80061; 83036; 84439; 84443; 85025

== ENCOUNTER 2022-10-10 12:54 | Outpatient (REF) | payer OTHER, SELFPAY ==
--- NOTE | ~2022-10-10 | MM_ITS ---
EXAMINATION: MM DIAGNOSTIC DIGITAL BREAST TOMOSYNTHESIS, BILATERAL US TARGETED LEFT BREAST ULTRASOUND CLINICAL INFORMATION: Right breast cancer. COMPARISON: Mammography: 11/02/2021 and studies dating back to 02/01/2014. TECHNIQUE: Digital breast tomosynthesis is performed in both the craniocaudal and mediolateral oblique views along with computer-aided detection (CAD). Synthesized 2D images are generated from the tomosynthesis. Additional spot magnification views of the right breast in craniocaudal and 90-degree mediolateral views performed as well as full-field left breast mediolateral view and spot compression view in mediolateral oblique projection. Targeted left breast ultrasound. FINDINGS: There are scattered areas of fibroglandular density (ACR BI-RADS breast composition Category b). RIGHT BREAST: Post lumpectomy and radiation change is noted. No definitive suspicious lesion is identified. No suspicious grouping of microcalcifications. LEFT BREAST: There is question of a region of asymmetric density about the superior aspect of the left breast for which spot compression view in the lateral oblique projection and 90-degree mediolateral full-field view performed. This appears to be related to superimposed parenchyma. Targeted left breast ultrasound did not demonstrate any abnormal cystic or solid mass. No region of abnormal distal sound shadowing is appreciated. No edematous change within the left breast tissue is identified. Six-month left breast mammogram suggested for continued surveillance. Results are discussed with the patient at time of visit. MM/MM tomosynthesis diagnostic BI IMPRESSION: Postsurgical change right breast. Density left breast for which 6-month followup study is suggested. ASSESSMENT: BI-RADS 3: Probably benign. RECOMMENDATION: Diagnostic mammography in 6 months. This patient's information was entered into a reminder system with a target due date for their next mammogram.
== END 2022-10-10 12:55 | disposition home or self-care (01) ==
LOC: HO.MAMMO 12:54
PROVIDERS: PCP Surgery; Visit Provider Surgery
DX: R92.2 Inconclusive mammogram (principal)
CPT/HCPCS: 76642; 77062; 77066

== ENCOUNTER → 2022-10-23 13:38 | Outpatient (BNVA) | payer OTHER, SELFPAY | PROVIDERS: Visit Provider Surgery | DX: Z13.89 Encounter for screening for other disorder (principal) ==

== ENCOUNTER 2023-05-13 14:50 | Outpatient (REF) | payer OTHER, SELFPAY ==
--- NOTE | ~2023-05-13 | MM_ITS ---
EXAMINATION: MM DIAGNOSTIC DIGITAL BREAST TOMOSYNTHESIS, LEFT CLINICAL INFORMATION: Follow-up one view asymmetry upper left breast seen only on MLO projection. History of right breast cancer diagnosed 11/07/2021. COMPARISON: Mammography: 10/10/2022, 11/07/2021, and priors dating back to 2013. TECHNIQUE: Digital LEFT breast tomosynthesis is performed in both the craniocaudal and mediolateral oblique views along with computer-aided detection (CAD). Synthesized 2D images are generated from the tomosynthesis. FINDINGS: There are scattered areas of fibroglandular density (ACR BI-RADS breast composition Category b). The previously seen 1 view asymmetric density does not persist on current views and was consistent with superimposition artifact of normal overlapping breast tissue. There are no suspicious masses, suspicious grouped calcifications, or areas of architectural distortion. The parenchymal pattern is stable from prior exams. We will reassess this finding in 6 months when the patient is due for bilateral. MM/MM tomosynthesis diagnostic LT IMPRESSION: No persistent suspicious mammographic findings. Probably benign findings. Recommend resuming routine bilateral screening mammography in 6 months, when due for bilateral diagnostic mammography. ASSESSMENT: BI-RADS BI-RADS 3 - Probably benign finding(s) - 6 month follow-up suggested RECOMMENDATION: 6 Month F/U Results were provided to the patient at time of visit by the technologist. This patient's information was entered into a reminder system with a target due date for their next mammogram.
== END 2023-05-13 14:51 | disposition home or self-care (01) ==
LOC: HO.MAMMO 14:50
PROVIDERS: PCP Physician Assistant; Visit Provider Surgery
DX: N64.89 Other specified disorders of breast (principal)
CPT/HCPCS: 77061; 77065

== ENCOUNTER 2023-06-25 14:43 | Outpatient (AMB) | payer OTHER, MEDICAID, SELFPAY ==
--- NOTE | 2023-06-25 14:45 | A.OFFVIS_ITS ---
Intake Intake Visit Reasons: breast exam Intake Note: Patient is seen in office for follow up visit, breast exam. 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 In addition a cluster of calcifications was also identified in the right breast. Both areas were felt to be suspicious for malignancy and biopsy recommended. The density was identified by ultrasound as well. Patient denies any palpable mass, skin change, nipple discharge, or enlarged lymph nodes. She denies a previous history of breast problems or breast surgery. She is . She reports breast-feeding both children. Her family history is negative for breast cancer. A stereotactic guided core biopsy and ultrasound-guided core biopsy was performed on 11/07/2021 at the [facility]. Pathology revealed: A.? Breast, right calcifications, biopsy:? Benign breast tissue with fibroadenomatous change and calcifications; no atypia or malignancy identified. B.? Breast, right mass at 9 o'clock, biopsy:??Invasive ductal carcinoma, MSBR grade 1.? ER/SC positive, HER2 Gabby negative, proliferation index 10% overall by Ki-67 immunostaining. She underwent a lumpectomy with needle localization, sentinel node biopsy on 11/27/2021. Pathology confirmed invasive ductal carcinoma 1.5 cm in diameter, grade 2, 2 sentinel nodes negative for metastatic disease negative margins with the closest margin being 0.8 cm from the superior margin. She tolerated the procedure well and denies any ongoing symptoms other than some swelling in the right arm. She was evaluated by Dr. Marie from [facility] on 12/14/2021 and started on letrozole 2.5 mg q.day for 5 years. Patient declined the medication due to the risk of joint pain which she states she already suffers from. She underwent radiation therapy at [facility] developed a severe skin burn there for the treatment was stopped. She now notes some swelling in the entire breast especially in the lower inner quadrant. She otherwise feels well no new complaints. Follow-up mammogram on 10/10/2022 as well as targeted ultrasound of the left breast reveals a region of asymmetric density in the superior aspect of the left breast. Targeted ultrasound did not demonstrate any abnormal cystic or solid mass. The lesion was regarded as low suspicion (BI-RADS 3) and diagnostic mammogram feet in 6 months recommended. She subsequent underwent a left breast diagnostic mammogram on 05/13/2023. This revealed no persistent suspicious mammographic findings. This was felt to be probably benign and routine screening bilateral mammography recommended in 6 months. [facility] Medical History History of MRSA infection COVID-19 vaccine series completed Invasive ductal carcinoma of right breast Breast calcification, right Hyponatremia Mixed dyslipidemia Acquired hypothyroidism Pneumococcal vaccination declined Refused influenza vaccine Mixed hearing loss Degenerative disc disease, cervical Pulmonary nodule seen on imaging study Annual visit for general adult medical examination with abnormal findings Sleeping difficulties Hypertension CREST syndrome Nephrolithiasis Gout Hypertriglyceridemia Hypothyroidism Surgical History H/O colonoscopy History of bladder surgery History of cholecystectomy History of hysterectomy History of lumpectomy of right breast (11/27/21) History of partial thyroidectomy History of tubal ligation History of vein stripping Family History Brother No problems noted. Daughter Mental health disorder Son Mental health disorder Paternal Grandmother Colon cancer Maternal Aunt Breast cancer Social History Household Members: None Housing: House Are you a primary patient care to a significant other at home: No Do you presently have visiting nurse or other home services: No Patient Tobacco Use Status: Former Tobacco user Quit Date: age 28's Tobacco use type: Cigarette Years Smoked: 10yrs e-Cigarette/Vaping Use: Never Used service: No Current occupational status: retired Cognitive needs: No Hearing needs: No Vision needs: No Female Reproductive History Menstrual Age of Menarche: 11 Review of Systems Const All systems reviewed & are unremarkable except as noted in HPI and below Card Denies chest pain, Denies irregular heart rhythm, Denies palpitations and Denies dyspnea Resp Denies cough, Denies hemoptysis and Denies dyspnea Skin/Breast Reports as per HPI Endo Denies palpitations Physical Exam Const General: comfortable and no acute distress Nutritional Appearance: well nourished Orientation/consciousness: patient oriented x3 Limitations: no limitations Chest Other: Breast with clean incision without seroma or hematoma. There is evidence of lymphedema involving the right breast extending into the axilla. No suspicious palpable mass is appreciated. Resp Other: Breathing comfortably on room air, no respiratory distress Skin Other: Warm, dry, no rash Neuro General: patient oriented x3 Extrem Other: No cyanosis, clubbing, mild edema in the right arm below the axilla. No erythema is appreciated. Assessment & Plan Assessment & Plan (1) Invasive ductal carcinoma of right breast: Code(s): C50.911 - Malignant neoplasm of unspecified site of right female breast Plan 68-year-old female patient found to have invasive ductal carcinoma of the right breast status post lumpectomy with needle localization and sentinel node biopsy on 11/27/2021. She is followed by Dr. Marie and completed radiation therapy at [facility]. She has decline letrozole is currently and no antiestrogen medication. Examination today reveals lymphedema involving the right breast. No new palpable mass, or enlarged lymph nodes are appreciated. She underwent follow-up mammogram on 10/10/2022 with low suspicion findings. She underwent follow-up left diagnostic mammograms on 05/13/2023. This revealed no persistent suspicious mammographic findings. Findings were felt to be probably benign and routine bilateral screening mammography was recommended in 6 months (11/13/2023). She will follow-up in 6 months for routine breast examination. Coding Level of Care Code Est Pt Level 3 (36352) Diagnoses Invasive ductal carcinoma of right breast C50.911
== END 2023-06-25 15:18 | disposition home or self-care (01) ==
PROVIDERS: PCP Physician Assistant; Visit Provider Surgery
DX: C50.911 Malignant neoplasm of unspecified site of right female breast (principal)
CPT/HCPCS: 99213

== ENCOUNTER → 2023-06-25 14:43 | Outpatient (BNVA) | payer OTHER, SELFPAY | PROVIDERS: PCP Physician Assistant; Visit Provider Surgery ==

== ENCOUNTER 2023-11-13 13:20 | Outpatient (REF) | payer OTHER, SELFPAY ==
--- NOTE | ~2023-11-13 | MM_ITS ---
EXAMINATION: MM DIAGNOSTIC DIGITAL BREAST TOMOSYNTHESIS, BILATERAL CLINICAL INFORMATION: Year 2 postop lumpectomy right breast upper outer quadrant for invasive ductal carcinoma grade 2. Patient also here for six-month follow-up of 1 view asymmetry left breast MLO slightly upper central position, with no definite correlate on left CC. COMPARISON: Mammography: 05/13/2023, 10/10/2022 (BI-RADS 3), 11/07/2021, 09/27/2021, and dating back to 2012. TECHNIQUE: Digital breast tomosynthesis is performed in both the craniocaudal and mediolateral oblique views along with computer-aided detection (CAD). Synthesized 2D images are generated from the tomosynthesis. In addition to standard views, 2-D spot magnification right CC x1 and right ML x2 were also obtained of the right lumpectomy site. FINDINGS: There are scattered areas of fibroglandular density (ACR BI-RADS breast composition Category b). The previously seen left breast 1 view asymmetric density does not persist on current views and was consistent with superimposition artifact of normal overlapping breast tissue. There are no suspicious masses, suspicious grouped calcifications, or areas of architectural distortion left breast. The parenchymal pattern is stable from prior exams. No further follow-up of this one view asymmetry is necessary. Right breast involuting lumpectomy cavity with improved air-fluid level, likely resolving seroma in the upper far outer quadrant. The seroma cavity is also approximately half the size of previously. There is abundant fat necrosis in this region. There is persistent skin edema throughout the right breast and diffuse trabecular thickening, which has mildly improved, and is treatment related. There are vascular calcifications. No evidence of recurrent disease. MM/MM tomosynthesis diagnostic BI IMPRESSION: -Post lumpectomy changes upper outer right breast with involuting fluid collection, likely seroma with adjacent fat necrosis. -Persistent but mildly improving skin edema and trabecular prominence related to treatment related changes. -No evidence of right breast recurrence of disease. -No suspicious findings left breast. Recommend one-year follow-up right diagnostic mammography to complete year 3 postoperative lumpectomy protocol. ASSESSMENT: BI-RADS BI-RADS 3 - Probably benign finding(s) - 12 month follow-up suggested RECOMMENDATION: 12 month diagnostic follow up Results were provided to the patient at time of visit by the technologist. This patient's information was entered into a reminder system with a target due date for their next mammogram.
== END 2023-11-13 13:21 | disposition home or self-care (01) ==
LOC: HO.MAMMO 13:20
PROVIDERS: PCP Family Medicine; Visit Provider Physician Assistant
DX: Z85.3 Personal history of malignant neoplasm of breast (principal)
CPT/HCPCS: 77062; 77066

== ENCOUNTER → 2023-11-13 14:00 | Outpatient (BNV) | payer OTHER, SELFPAY | PROVIDERS: PCP Family Medicine; Visit Provider Radiology Diagnostic Radiology | DX: N64.1 Fat necrosis of breast (principal); R92.1 Mammographic calcification found on diagnostic imaging of breast; R92.323 Mammographic fibroglandular density, bilateral breasts; Z98.890 Other specified postprocedural states | CPT/HCPCS: 77062; 77066; G0279 ==

== ENCOUNTER 2024-01-07 14:41 | Outpatient (AMB) | payer OTHER, SELFPAY ==
--- NOTE | 2024-01-07 14:44 | A.OFFVIS_ITS ---
Vital Signs 01/07/24 14:52 Height 5 ft 6 in Weight 171 lb BMI 27.6 BP 159/67 H Blood Pressure Location Lt brachial Position Sitting Pulse 73 Intake Visit Reasons: 6 month breast exam Intake Note: Patient is seen in office for 6 month follow up visit, breast exam. 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 In addition a cluster of calcifications was also identified in the right breast. Both areas were felt to be suspicious for malignancy and biopsy recommended. The density was identified by ultrasound as well. Patient denies any palpable mass, skin change, nipple discharge, or enlarged lymph nodes. She denies a previous history of breast problems or breast surgery. She is . She reports breast-feeding both children. Her family history is negative for breast cancer. A stereotactic guided core biopsy and ultrasound-guided core biopsy was performed on 11/07/2021 at the [facility]. Pathology revealed: A.? Breast, right calcifications, biopsy:? Benign breast tissue with fibroadenomatous change and calcifications; no atypia or malignancy identified. B.? Breast, right mass at 9 o'clock, biopsy:??Invasive ductal carcinoma, MSBR grade 1.? ER/DE positive, HER2 Gabby negative, proliferation index 10% overall by Ki-67 immunostaining. She underwent a lumpectomy with needle localization, sentinel node biopsy on 11/27/2021. Pathology confirmed invasive ductal carcinoma 1.5 cm in diameter, grade 2, 2 sentinel nodes negative for metastatic disease negative margins with the closest margin being 0.8 cm from the superior margin. She tolerated the procedure well and denies any ongoing symptoms other than some swelling in the right arm. She was evaluated by Dr. Marie from [facility] on 12/14/2021 and started on letrozole 2.5 mg q.day for 5 years. Patient declined the medication due to the risk of joint pain which she states she already suffers from. She underwent radiation therapy at [facility] developed a severe skin burn there for the treatment was stopped. Follow-up mammogram on 10/10/2022 as well as targeted ultrasound of the left breast reveals a region of asymmetric density in the superior aspect of the left breast. Targeted ultrasound did not demonstrate any abnormal cystic or solid mass. The lesion was regarded as low suspicion (BI-RADS 3) and diagnostic mammogram feet in 6 months recommended. She subsequent underwent a left breast diagnostic mammogram on 05/13/2023. This revealed no persistent suspicious mammographic findings. This was felt to be probably benign and routine screening bilateral mammography recommended in 6 months. Mammogram obtained 11/14/2023 revealed postop changes probably benign (BI-RADS 3), and 12 month follow-up diagnostic mammography was recommended. She continues to note some swelling in the right breast especially after taking her bra off. She denies any significant pain, skin change or palpable mass. [facility] Medical History History of MRSA infection COVID-19 vaccine series completed Invasive ductal carcinoma of right breast Breast calcification, right Hyponatremia Mixed dyslipidemia Acquired hypothyroidism Pneumococcal vaccination declined Refused influenza vaccine Mixed hearing loss Degenerative disc disease, cervical Pulmonary nodule seen on imaging study Annual visit for general adult medical examination with abnormal findings Sleeping difficulties Hypertension CREST syndrome Nephrolithiasis Gout Hypertriglyceridemia Hypothyroidism Surgical History History of vein stripping History of lumpectomy of right breast (11/27/21) H/O colonoscopy History of tubal ligation History of hysterectomy History of cholecystectomy History of bladder surgery History of partial thyroidectomy Family History Brother No problems noted. Daughter Mental health disorder Son Mental health disorder Paternal Grandmother Colon cancer Maternal Aunt Breast cancer Social History Household Members: None Housing: House Are you a primary ocular care aide to a significant other at home: No Do you presently have visiting nurse or other home services: No Patient Tobacco Use Status: Former Tobacco user Quit Date: age 28's Tobacco use type: Cigarette Years Smoked: 10yrs e-Cigarette/Vaping Use: Never Used service: No Current occupational status: retired Cognitive needs: No Hearing needs: No Vision needs: No Female Reproductive History Menstrual Age of Menarche: 11 Review of Systems Const All systems reviewed & are unremarkable except as noted in HPI and below Card Denies chest pain, Denies irregular heart rhythm, Denies palpitations and Denies dyspnea Resp Denies cough, Denies hemoptysis and Denies dyspnea Skin/Breast Reports as per HPI Endo Denies palpitations Physical Exam Const General: comfortable and no acute distress Nutritional Appearance: well nourished Orientation/consciousness: patient oriented x3 Limitations: no limitations Chest Other: Right breast: Well-healed incision in the upper outer quadrant and axilla with no new skin changes. Mild edema especially in the lower inner quadrant. No palpable mass, skin change or nipple discharge appreciated. No enlarged lymph nodes. Left breast: No skin change, nipple discharge, palpable mass, or enlarged lymph nodes. Resp Other: Breathing comfortably on room air, no respiratory distress Skin Other: Warm, dry, no rash Neuro General: patient oriented x3 Extrem Other: No cyanosis, clubbing, mild edema in the right arm below the axilla. No erythema is appreciated. Assessment & Plan Assessment & Plan (1) Invasive ductal carcinoma of right breast: Code(s): C50.911 - Malignant neoplasm of unspecified site of right female breast Category: Medical Plan 68-year-old female patient found to have invasive ductal carcinoma of the right breast status post lumpectomy with needle localization and sentinel node biopsy on 11/27/2021. She is followed by Dr. Marie and completed radiation therapy at [facility]. She has decline letrozole is currently and no antiestrogen medication. Examination today reveals lymphedema involving the right breast. No new palpable mass, or enlarged lymph nodes are appreciated. She underwent follow-up mammogram on 10/10/2022 with low suspicion findings. She underwent follow-up left diagnostic mammograms on 05/13/2023. This revealed no persistent suspicious mammographic findings. Findings were felt to be probably benign and routine bilateral screening mammography was recommended in 6 months. Subsequent repeat mammogram on 11/13/2023 revealed post lumpectomy changes, probably benign (BI-RADS 3). Follow-up mammogram in 12 months is recommended. I recommended follow-up examination in 6 months. Coding Level of Care Code Est Pt Level 3 (64945) Diagnoses Invasive ductal carcinoma of right breast C50.911
[2024-01-07 14:52] VITALS: BP 159/67; PULSE 73; BMI 27.6
== END 2024-01-07 15:01 | disposition home or self-care (01) ==
PROVIDERS: PCP Family Medicine; Visit Provider Surgery
DX: C50.911 Malignant neoplasm of unspecified site of right female breast (principal)
CPT/HCPCS: 99213

== ENCOUNTER → 2024-01-07 14:41 | Outpatient (BNVA) | payer OTHER, SELFPAY | PROVIDERS: PCP Family Medicine; Visit Provider Surgery ==

== ENCOUNTER 2024-07-23 14:43 | Outpatient (AMB) | payer OTHER, SELFPAY ==
--- NOTE | 2024-07-23 15:19 | A.OFFVIS_ITS ---
Vital Signs 07/23/24 15:24 Height 5 ft 6 in Weight 175 lb BMI 28.2 Pulse 72 Intake Visit Reasons: 6 month breast exam Intake Note: Patient is seen in office for 6 month follow up visit, breast exam. 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 In addition a cluster of calcifications was also identified in the right breast. Both areas were felt to be suspicious for malignancy and biopsy recommended. The density was identified by ultrasound as well. Patient denies any palpable mass, skin change, nipple discharge, or enlarged lymph nodes. She denies a previous history of breast problems or breast surgery. She is . She reports breast-feeding both children. Her family history is negative for breast cancer. A stereotactic guided core biopsy and ultrasound-guided core biopsy was performed on 11/07/2021 at the [facility]. Pathology revealed: A.? Breast, right calcifications, biopsy:? Benign breast tissue with fibroadenomatous change and calcifications; no atypia or malignancy identified. B.? Breast, right mass at 9 o'clock, biopsy:??Invasive ductal carcinoma, MSBR grade 1.? ER/OH positive, HER2 Gabby negative, proliferation index 10% overall by Ki-67 immunostaining. She underwent a lumpectomy with needle localization, sentinel node biopsy on 11/27/2021. Pathology confirmed invasive ductal carcinoma 1.5 cm in diameter, grade 2, 2 sentinel nodes negative for metastatic disease negative margins with the closest margin being 0.8 cm from the superior margin. She tolerated the procedure well and denies any ongoing symptoms other than some swelling in the right arm. She was evaluated by Dr. Marie from [facility] on 12/14/2021 and started on letrozole 2.5 mg q.day for 5 years. Patient declined the medication due to the risk of joint pain which she states she already suffers from. She underwent radiation therapy at [facility] Will developed a severe skin burn there for the treatment was stopped. Follow-up mammogram on 10/10/2022 as well as targeted ultrasound of the left breast reveals a region of asymmetric density in the superior aspect of the left breast. Targeted ultrasound did not demonstrate any abnormal cystic or solid mass. The lesion was regarded as low suspicion (BI-RADS 3) and diagnostic mammogram feet in 6 months recommended. She subsequent underwent a left breast diagnostic mammogram on 05/13/2023. This revealed no persistent suspicious mammographic findings. This was felt to be probably benign and routine screening bilateral mammography recommended in 6 months. Mammogram obtained 11/14/2023 revealed postop changes probably benign (BI-RADS 3), and 12 month follow-up diagnostic mammography was recommended. She continues to note some swelling in the right breast especially after taking her bra off. She denies any significant pain, skin change or palpable mass. FORMERLY [facility], [facility] Medical History History of MRSA infection COVID-19 vaccine series completed Invasive ductal carcinoma of right breast Breast calcification, right Hyponatremia Mixed dyslipidemia Acquired hypothyroidism Pneumococcal vaccination declined Refused influenza vaccine Mixed hearing loss Degenerative disc disease, cervical Pulmonary nodule seen on imaging study Annual visit for general adult medical examination with abnormal findings Sleeping difficulties Hypertension CREST syndrome Nephrolithiasis Gout Hypertriglyceridemia Hypothyroidism Surgical History History of vein stripping History of lumpectomy of right breast (11/27/21) H/O colonoscopy History of tubal ligation History of hysterectomy History of cholecystectomy History of bladder surgery History of partial thyroidectomy Family History Brother No problems noted. Daughter Mental health disorder Son Mental health disorder Paternal Grandmother Colon cancer Maternal Aunt Breast cancer Social History Household Members: None Housing: House Are you a primary animal care giver to a significant other at home: No Do you presently have visiting nurse or other home services: No Patient Tobacco Use Status: Former Tobacco user Tobacco use type: Cigarette Years Smoked: 10yrs e-Cigarette/Vaping Use: Never Used service: No Current occupational status: retired Cognitive needs: No Hearing needs: No Vision needs: No Female Reproductive History Menstrual Age of Menarche: 11 Review of Systems Const All systems reviewed & are unremarkable except as noted in HPI and below Card Denies chest pain, Denies irregular heart rhythm, Denies palpitations and Denies dyspnea Resp Denies cough, Denies hemoptysis and Denies dyspnea Skin/Breast Reports as per HPI Endo Denies palpitations Physical Exam Vital Signs: Last Vital Signs Pulse 72 07/23/24 15:24 BMI result Body Mass Index 28.2 Const General: comfortable and no acute distress Nutritional Appearance: well nourished Orientation/consciousness: patient oriented x3 Limitations: no limitations Chest Other: Right breast: Well-healed incision in the upper outer quadrant and axilla with no new skin changes. Mild edema especially in the lower inner quadrant. No palpable mass, skin change or nipple discharge appreciated. No enlarged lymph nodes. Left breast: No skin change, nipple discharge, palpable mass, or enlarged lymph nodes. Resp Other: Breathing comfortably on room air, no respiratory distress Skin Other: Warm, dry, no rash Neuro General: patient oriented x3 Extrem Other: No cyanosis, clubbing, mild edema in the right arm below the axilla. No erythema is appreciated. Assessment & Plan Assessment & Plan (1) Invasive ductal carcinoma of right breast: Code(s): C50.911 - Malignant neoplasm of unspecified site of right female breast Category: Medical Plan 69-year-old female patient found to have invasive ductal carcinoma of the right breast status post lumpectomy with needle localization and sentinel node biopsy on 11/27/2021. She is followed by Dr. Marie and completed radiation therapy at [facility]. She has decline letrozole is currently and no antiestrogen medication. Examination today reveals mild lymphedema involving th e right breast. No new palpable mass, or enlarged lymph nodes are appreciated. She underwent follow-up mammogram on 10/10/2022 with low suspicion findings. She underwent follow-up left diagnostic mammograms on 05/13/2023. This revealed no persistent suspicious mammographic findings. Findings were felt to be probably benign and routine bilateral screening mammography was recommended in 6 months. Subsequent repeat mammogram on 11/13/2023 revealed post lumpectomy changes, probably benign (BI-RADS 3). Follow-up mammogram in 12 months is recommended. I recommended follow-up examination in 6 months. Coding Level of Care Code Est Pt Level 3 (77025) Diagnoses Invasive ductal carcinoma of right breast C50.911
[2024-07-23 15:24] VITALS: PULSE 72; BMI 28.2
--- OUTSIDE RECORDS SUMMARY | 2024-07-29 04:08 | XMS_ITS ---
Author Organization [facility] Address [address] [place] [phone] Care Team Providers Care Softball Winder Name Role Phone Shahriar Zendejas MD Primary Care Provider Wing Gimenez Unavailable [phone] REASON FOR VISIT Patient presents today for a COLON SCREENING Encounters Encounter Location Date Provider Diagnosis [facility] [address] [place] [phone] 04/24/2023 Wing Mccallum PLAN OF TREATMENT No Information
--- OUTSIDE RECORDS SUMMARY | 2024-07-29 04:08 | XMS_ITS | Patient Health Record ---
Author Organization [facility] Address [address] [place] [address] Care Team Providers Care Business Development Specialist Name Role Phone Shahriar Zendejas MD Primary Care Provider Wing Gimenez [phone] ALLERGIES Allergen (clinical drug ingredient) Drug/Non Drug Allergy documented on EMR Reaction Allergy Type Onset Date Status Latex Latex Unknown Allergy Active REASON FOR REFERRAL No Information MEDICATIONS Medication SIG (Take, Route, Frequency, Duration) Notes Start Date End Date Status Levothyroxine Sodium 50 MCG Oral for 90 Active Fish Oil 500 MG 2 Orally Twice a day Active Lisinopril 5 MG Oral for 90 Ac tive IMMUNIZATIONS Vaccine Route Administration Date Status Comme nts Influenza Unknown 04/19/2022 Administered SOCIAL HISTORY Tobacco Use: Social History Observation Description Date Details (start date - stop date) Never Smoker NA - NA Sex Assigned At : Social History Observation Description Sex Assigned At Unknown Tobacco Use/Smoking Question Answer Notes Patient is a nonsmoker Alcohol Screen Question Answer Notes Did you have a drink containing alcohol in the p ast year? No Points 0 Interpretation Negative PROBLEMS Problem Type ICD Code Onset Dates Problem Status W/U Status Risk SNOMED Code Notes Problem Hx of adenomatous colonic polyps (Z86.010) Active confirmed 487241584 Problem Screening for colon cancer (Z12.11) Active confirmed 494235418 Problem Preprocedural examination (Z01.818) Active confirmed [id number] Problem Blood in stool (K92.1) Active confirmed [id number] PLAN OF TREATMENT Future Test Test Name Order Date COLONOSCOPY 10/02/2022 Insurance Providers Payer Name Payer Address Payer Phone Subscriber Number Group Number Insured Name Patient Relationship to Insured Coverage Start Date Coverage End Date [employer] [address] [address] [place] [address] [id number] NOA THURMAN Self - patient is the insured 3 MEDICAL (GENERAL) HISTORY Medical History History ICD Code Hypertension Breast cancer-11/2021--lumpectomy, XRT Kidney stones Raynaud's and 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 Kee with r emoval of 1 small tubular adenoma Denies DC,DM,CVA,Lung disease,renal dise ase Hyperlipidemia Surgical History Surgery Date(Month/Year) Breast cancer as above--Dr. Caruso 2 Thyroid--partial left thyroidectomy 1991 Bladder 1985 Bladder suspension 2014 Hysterectomy with BSO Vein stripping x2
--- OUTSIDE RECORDS SUMMARY | 2024-07-29 04:08 | XMS_ITS ---
Author Organization [facility] Address [address] [place] [address] Care Team Providers Care Nut Steamer Name Role Phone Shahriar Zendejas MD Primary Care Provider Wing Gimenez [phone] REASON FOR VISIT [employer] insurance. ov on 04-24-2023 Encounters Encounter Location Date Provider Diagnosis [facility] [address] [place] [address] 03/11/2023 Wing Mccallum PLAN OF TREATMENT No Information
== END 2024-07-23 15:47 | disposition home or self-care (01) ==
PROVIDERS: PCP Family Medicine; Visit Provider Surgery
DX: C50.911 Malignant neoplasm of unspecified site of right female breast (principal)
CPT/HCPCS: 99213

== ENCOUNTER 2024-12-10 14:18 | Outpatient (REF) | payer MEDICARE, SELFPAY ==
--- NOTE | ~2024-12-10 | MM_ITS ---
EXAMINATION: MM DIAGNOSTIC DIGITAL BREAST TOMOSYNTHESIS, BILATERAL CLINICAL INFORMATION: Right breast cancer in 2021 status post lobectomy. COMPARISON: Mammography: Comparison is made with relevant prior exams. TECHNIQUE: Digital breast mammography with tomosynthesis is performed in both the craniocaudal and mediolateral oblique views along with computer-aided detection (CAD). FINDINGS: There are scattered areas of fibroglandular density (ACR BI-RADS breast composition Category b). Right post lumpectomy changes are stable. There are no significant masses, abnormal calcifications, or other abnormalities. Results are provided to the patient at time of visit by the technologist. MM/MM tomosynthesis diagnostic BI IMPRESSION: There are no significant changes from prior study. ASSESSMENT: BI-RADS BI-RADS 2 - Benign Findings RECOMMENDATION: 1 year F/U This patient's information was entered into a reminder system with a target due date for their next mammogram. Electronically signed by: Fariba Ruiz DO 12/11/2024 03:26 PM EDT
--- OUTSIDE RECORDS SUMMARY | 2024-12-10 16:51 | XMS_ITS | Clinical Summary ---
Author Organization [facility] Address [address] [facility] [address] [place] [address] Phone Care Team Providers Care Dispatcher Automobile Rental Name Role Phone Deanna Tidwell MD Primary Care Provider [phone] Allergies Active Allergy Reactions Criticality Noted Date Comments Cefprozil 07/03/2013 Latex 07/03/2013 Other reaction(s): rash Zolpidem 03/19/2017 Other reaction(s): OTHER SLEEP EATING AND SLEEP WALKING Medications Apple Cider Vinegar 188 MG capsule Take by mouth Active Cholecalciferol 10 MCG (400 UNIT) capsule Take by mouth Ac tive cyanocobalamin (VITAMIN B-12) 250 MCG tablet Take by mouth A ctive Garlic Oil 3 MG capsule Take by mouth Active Lactobacillus Acidophilus powder Take by mouth 4 Active Melatonin 1 MG/4ML liquid Take 3 mg by mouth 4 Active MULTIPLE MINERALS-VITAMIN S PO Take by mouth 1 (one) time each day Active Black Pepper-Turmeric (Turmeric Curcumin) 5-1000 MG capsule Take 375 mg by mouth Active Calcium-Vitamin D-Vitamin K 500-100-40 MG-UNT-MCG chewable tablet Chew 1 (one) time each day Active Biotin 5 MG capsule Take by mouth 1 (one) time each day Active Ginkgo Biloba 120 MG capsule Take by mouth 1 (one) time each day Active levothyroxine (SYNTHROID, LEVOTHROID) 50 MCG tablet TAKE 1 TABLET DAILY SATURDAY THROUGH SATURDAY, AND 2 TABLETS ON SATURDAY. NO REFILLS WITHOUT APPOINTMENT PLEASE CALL TO SCHEDULE 0 Active lisinopril 5 MG tablet Take 1 tablet by mouth 1 (one) time each day 0 Active Magnesium Chloride 64 MG tablet delayed-release Take by mouth 4 Active omega-3 (FISH OIL) 1000 MG capsule Take 3,000 mg by mouth 8 Active rosuvastatin (CRESTOR) 5 MG tablet Take 5 mg by mouth 1 (one) time each day 2 Active oxyCODONE-acetam inophen (PERCOCET) 5-325 MG per tablet 2 Active calcium carbonate-cholec alciferol (OYSTER SHELL) 250-125 MG-UNIT per tablet 2 tablets Active fluticasone (FLONASE) 50 MCG/ACT nasal spray Administer 1 spray into affected nostril(s) Active Active Problems Problem Noted Date Diagnosed Date Gout, not otherwise specified 01/16/2022 Stage 3b chronic kidney disease 01/16/2022 Proteinuria, not otherwise specified 01/16/2022 Hematuria, not otherwise specified 01/16/2022 Obstructive nephropathy 01/16/2022 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 Otero Solitary nodule of lung 07/24/2019 CR(E)ST syndrome 07/20/2016 Overview (11/02/2021): Raynaud's , telangiectasias, anti centromere REGGIE, ? Esophageal dysmotility Anisocoria 06/16/2015 Herniated urinary bladder 05/22/2014 Multinodular goiter 11/18/2013 Overview (11/02/2021): Status post left thyroid lobectomy Raynaud's disease 09/16/2013 Overview (11/02/2021): Had dx of CREST made by Dr Shaw. Diverticulitis of colon 07/03/2013 Overview (11/02/2021): Incidental finding at colonoscopy 07/03/2013. Body mass index 25-29 - overweight 04/14/2013 Hypothyroidism 04/14/2013 Total abdominal hysterectomy with bilateral salpingo-oophorectomy 09/21/2010 Interstitial pneumonia 07/29/2010 Subtotal thyroidectomy 07/28/2010 Hypertension 07/21/2010 Obstructive sleep apnea syndrome 07/21/2010 Overview (11/02/2021): No longer on CPAP. Mask uncomfortable Resolved Problems Problem Noted Date Diagnosed Date Resolved Date Pure hyperglyceridemia 11/02/202111/05 Abnormal findings on diagnos tic imaging of lung 03/24/2020 11/05/2021 Other specified health status 01/08/2020 11/05/2021 Perforation of nasal septum 12/14/2016 11/05/2021 Overview (11/02/2021): Dr. Serafin Mcdonald Hyperparathyroidism 11/18/2013 01/17/20 22 Overview (11/02/2021): Parathyroidectomy 06/13/2007, Dr.Coe MCPHERSON(E)ST syndrome 07/29/2010 11/05/2021 Immunizations Immunization Administration Dates Next Due Influenza Whole 07/21/2010 Influenza, MDCK, Quadrivalen t, with preservative 05/26/2017 Influenza, Unspecified 05/13/2016,2014,04/30/2013,2011,05/14/2011,07/21/2010 PPD Test 06/08/2015 Tdap 07/21/2010 Zoster 07/09/2013 Family History Medical History Relation Comments Gout Father Kidney disease Father Relation Status Comments Father Social History Tobacco Use Types Packs/Day Years Used Date Smoking Tobacco: Never Smokeless Tobacco: Never Alcohol Use Standard Drinks/Week Comments Never 0 (1 standard drink = 0.6 oz pur e alcohol) Comments Unknown Sex and Gender Information Value Date Recorded Sex Assigned at Not on file Legal Sex Female 12:21 PM EST Gender Identity Not on file Sexual Orientation Not on file Last Filed Vital Signs Vital Sign Reading Time Taken Comments Blood Pressure 110/60 01/17/2022 11:38 AM EDT Pulse 72 01/17/2022 11:38 AM EDT Temperature - - Respiratory Rate - - Oxygen Saturation 99% 01/17/2022 11:38 AM EDT Inhaled Oxygen Concentration - - Weight 80.7 kg (178 lb) 01/17/2022 11:38 AM EDT Height - - Body Mass Index - - Plan of Treatment Health Maintenance Due Date Last Done Comments Breast Cancer Screening 1955 Pneumococcal Vaccine: 50+ Years (1 of 2 - PCV) 02/29/1972 Colorectal Cancer Screening: Annual FOBT 2002 Colorectal Cancer Screening: Colonoscopy 2002 Colorectal Cancer Screening: Sigmoidoscopy 2002 Influenza Vaccine (Season Ended) 2025 05/26/2017, 05/13/2016, 05/16/2015, Additional history exists Hepatitis B Vaccine Aged Out No longe r eligible based on patient's age to complete this topic Insurance [employer] Medicaid ([id number]) [employer] Medicaid ([id number]) Care Teams Dispatcher Automobile Rental Relationship Specialty Start Date End Date Deanna Tidwell MD [address] [place] [id number] PCP - General Internal Medicine 11/16/21
--- OUTSIDE RECORDS SUMMARY | 2024-12-10 16:51 | XMS_ITS | Encounter Summary ---
Author Organization [facility] Address [address] [place] [address] Care Team Providers Care Sports Health Club Membership Advisors Name Role Phone Lazarus Cordova MD Primary Care Pr ovider Reason for Visit * Reason Onset Date Comments FYI 12/03/2024 Peripheral Vascular Disease 12/03/2024 Encounter Details Date Type Department Care Team (Late st Contact Info) Description 12/03/2024 Telephone Adult Medicine [address] [address] Lazarus Cordova MD [address] [place] [phone] FYI; Peripheral Vascular Disease Social History Tobacco Use Types Packs/Day Years Used Date Smoking Tobacco: Former Cigarettes 0.3 5.7 0 08/19/1977 - 04/14/1983 Smokeless Tobacco: Former Alcohol Use Standard Drinks/Week Comments No 0 (1 standard drink = 0.6 oz pur e alcohol) Comments Unknown Sex and Gender Information Value Date Recorded Sex Assigned at Not on file Legal Sex Female 10:06 PM EST Gender Identity Not on file Sexual Orientation Not on file documented as of this encounter Progress Notes * Rylee Chatterjee RN - 12/03/2024 1:53 PM EDT Contacted Alma and informed her we would need a copy of pt's test results. She will fax a copyto . She states normally we would receive a copy of the results in 2 weeks. * Meenutheodore Alcantar - 12/03/2024 1:31 PM EDT Alma from [employer] (program form patient insurance) is calling due to the patient recent PVD test conducted by them and the findings were: Left foot 0.31 Right foot 0.14 She suggested to follow-up with patient in regards to these finding results. Please Advise. documented in this encounter Plan of Treatment Upcoming Encounters Date Type Department Care Team (Late st Contact Info) Description 01/08/2025 2:00 PM EDT Office Visit Adult Medicine [address] [phone] Lazarus Cordova MD [address] [place] [phone] documented as of this encounter Visit Diagnoses Not on filedocumented in this encounter Care Teams Sports Health Club Membership Advisors Relationship Specialty Start Date End Date Lazarus Cordova MD [address] [place] [id number] PCP - General Internal Medicine 10/12/24 documented as of this encounter
--- OUTSIDE RECORDS SUMMARY | 2024-12-10 16:51 | XMS_ITS | Clinical Summary ---
Author Organization [facility] Address [address] [place] [address] Phone Care Team Providers Care Solar Manager Name Role Phone Lazarus Cordova MD Primary Care Pr ovider Allergies Active Allergy Reactions Criticality Noted Date Comments Cefprozil 07/03/2013 Latex 07/03/2013 Rosuvastatin Calcium Muscular Issues 10/02/2018 Simvastatin Muscular Issues 10/02/2018 Zolpidem Other 03/19/2017 SLEEP EATING AND SLEEP WALKING Medications multivitamin with minerals (MULTIPLE VITAMIN-MINERAL S ORAL) Take by mouth daily. Active TURMERIC ORAL Take 375 mg by mouth daily. Active lisinopriL (PRINIVIL,ZESTR IL) 5 mg tablet Take 1 tablet (5 mg total) by mouth 1 (one) time each day. 90 tablet 1 09/15/2024 Active levothyroxine (SYNTHROID, LEVOTHROID) 50 mcg tablet Take 1 tablet (50 mcg total) by mouth 1 (one) time each day. 90 tablet 1 09/15/2024 Active metoprolol tartrate (LOPRESSOR) 25 mg tablet Take 0.5 tablets (12.5 mg total) by mouth 2 (two) times a day. 30 each 11/13/2024 11/14/19 26 Active azithromycin (ZITHROMAX) 250 mg tablet Take 2 tablets (500 mg total) by mouth 1 (one) time each day for 1 day, THEN 1 tablet (250 mg total) 1 (one) time each day for 4 days. 6 tablet 11/17/2024 11/23/19 25 predniSONE (DELTASONE) 20 mg tablet Take 2 tablets (40 mg total) by mouth 1 (one) time each day for 5 days. 10 each 11/17/2024 11/23/19 25 Active Problems Problem Noted Date Diagnosed Date History of right breast cancer 11/02/2024 Overview (11/02/2024): S/p lumpectomy Shortness of breath 10/26/2024 Assessment & Plan (10/26/2024 5:12 PM EDT): She has mild exertional dyspnea recently and does not have typical risk factors. She is diagnosed with crest syndrome which can cause elevated pulmonary arterial systolic pressure. Echocardiogram however did not show pulmonary hypertension. I would like to schedule stress echo to assess hemodynamics including LVOT velocity and pulmonary arterial systolic pressure. At the meantime, we will assess for myocardial ischemia. Abnormal echocardiogram 10/22/2024 Assessment & Plan (10/26/2024 5:12 PM EDT): Orders: ECG 12 lead Essential hypertension 06/04/2024 Assessment & Plan (10/26/2024 5:12 PM EDT): Only mildly elevated. She is on low-dose lisinopril and will continue current dosage. Nephrolithiasis 06/04/2024 Overview (06/04/2024): [address] Otero KONRAD (obstructive sleep apnea) 06/04/2024 Overview (06/04/2024): No longer on CPAP. 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 Serafin Mcdonald CREST (calcinosis, Raynaud's phenomenon, esophageal dysfunction, sclerodactyly, telangiectasia) ([facility] [place]24, [facility] V28) 07/20/2016 Overview (06/04/2024): Raynaud's , telangiectasias, anti centromere REGGIE, ? Esophageal dysmotility Anisocoria 06/16/2015 Known medical problems 05/22/2014 Hyperparathyroidism ([facility] V24) 11/18/2013 Overview (06/04/2024): Parathyroidectomy 06/13/2007, Multiple thyroid nodules 11/18/2013 Overview (06/04/2024): Status post left thyroid lobectomy Raynaud's disease 09/16/2013 Overview (06/04/2024): Had dx of CREST made by Dr Shaw. Diverticulitis of colon without hemorrhage 07/03 Overview (06/04/2024): Incidental finding at colonoscopy 07/03/2013. Hypothyroidism 04/14/2013 Overweight (BMI 25.0-29.9) 04/14/2013 Status post total abdominal hysterectomy and bilateral salpingo-oophorectomy (RANI-BSO) 09/21/2010 Status post partial thyroidectomy 07/28/2010 Encounters Date Type Department Care Team Description 12/03/2024 Telephone Adult Medicine [address] [phone] Lazarus Cordova MD FYI; Peripheral Vascular Disease 11/17/2024 10:23 AM EDT - 11/17/2024 11:59 PM EDT Hospital Encounter [address] [place] [phone] Chest congestion Discharge Disposition: Home or Self Care 11/17/2024 10:00 AM EDT Office Visit [address] [phone] Jamaal Moore PA Chest congestion (Primary Dx) 11/16/2024 Nurse Triage [address] [phone] Lazarus Cordova MD Cough; Sore Throat 11/06/2024 2:30 PM EDT Ancillary Procedure [facility] [address] [facility] [address] [place] [phone] SOB (shortness of breath) 11/02/[address] [phone] Lazarus Cordova MD Referral; Request For Order(s) 10/26/2024 3:00 PM EDT Office Visit [facility] [address] [facility] [address] [place] [phone] Sally Melendez MD Abnormal echocardiogram (Primary Dx); SOB (shortness of breath); Shortness of breath; Essential hypertension from Last 3 Months Immunizations Name Administration Dates Next Due Influenza Quadravalent, MDCK , 0.5ml, with preservative (Flucelvax) 6mo and older 05/26/2017 Influenza trivalent, with preservative (Fluzone; Afluria) 6mo and older 05/13/2016,05/16/2015,04/30/2013,2011,05/14/2011,07/21/2010 PPD Test 06/08/2015 Tdap Tetanus diptheria acell ular pertussis (Boostrix; Adacel) 7yo and older 07/21/2010 Zoster Live 07/09/2013 Surgical History Surgery Date Site/Laterality Comments CHOLECYSTECTOMY PROCEDURE: HISTORICAL CHOLECYSTECTOMY OTHER SURGICAL HISTORY PROCEDURE: HISTORICAL SUBTOTAL THYROIDECTOMY; COMMENT: partial - for goiter TUBAL LIGATION PROCEDURE: HISTORICAL TUBAL LIGATION HYSTERECTOMY 1992 PROCEDURE: HISTORICAL HYSTERECTOMY COLONOSCOPY 1999 PROCEDURE: HISTORICAL COLONOSCOPY; COMMENT: Domi difficult exam COLONOSCOPY 2012 PROCEDURE: HISTORICAL COLONOSCOPY; COMMENT: diverticulosis; otherwise neg and incomplete to 50 cm. OTHER SURGICAL HISTORY 2006 PROCEDURE: ---- OTHER ----; COMMENT: parathyroidectomy OTHER SURGICAL HISTORY PROCEDURE: ---- OTHER ----; COMMENT: bladder suspension Medical History Medical History Date Comments CREST syndrome ([facility] V24, [facility] V28) DX:CREST syndrome (HCC) Hyperlipemia DX:Hyperlipemia HTN (hypertension) DX:HTN (hyper tension) Interstitial pneumonitis (CM S/HCC V24, CMS/[facility] V28) DX:Interstitial pneumonitis (HCC) Nephrolithiasis DX:Nephrolithias is KONRAD (obstructive sleep apnea) DX :KONRAD (obstructive sleep apnea) Diverticulosis of colon (wit hout mention of hemorrhage) 07/03/2013 DX:Diverticulosis of colon (without mention of hemorrhage); COMMENT: Incidental finding at colonoscopy 07/03/2013. Hyperparathyroidism ([facility] V24) DX:Hyperparathyroidism (HCC) Cystocele 05/22/2014 DX:Cystocele CREST syndrome ([facility] V24, [facility] V28) DX:CREST syndrome (HCC) Dysphagia DX:Dysphagia History of right breast cancer 11/02/2024 S /p lumpectomy Family History Medical History Relation Name Comments Lung cancer Father age 57 , cancer Cataracts Mother , strok e Colon cancer Paternal Grandmother Blindness Neg Hx Glaucoma Neg Hx Macular degeneration Neg Hx Strabismus Neg Hx Relation Name Status Comments Daughter Alive bi-polar Father (Age 57) HTN Maternal Grandfather unknown Maternal Grandmother unknown Mother (Age 87) 2016 Paternal Grandfather unknown Paternal Grandmother colon c a Sister 1 Alive healthy Sister 2 Alive healthy Sister 3 Alive healthy Son Alive bi-polar Social History Tobacco Use Types Packs/Day Years [...] on file Sexual Orientation Not on file Obstetrics History Last Filed Vital Signs Vital Sign Reading Time Taken Comments Blood Pressure 128/76 11/17/2024 9:55 AM EDT Pulse 66 11/17/2024 9:55 AM EDT Temperature 36.5 ??C (97.7 ??F) 11/17/2024 9:55 AM ED T Respiratory Rate 14 11/17/2024 9:55 AM EDT Oxygen Saturation 98% 11/17/2024 9:55 AM EDT Inhaled Oxygen Concentration - - Weight 77.1 kg (170 lb) 11/17/2024 9:55 AM EDT Height 167.6 cm (5' 6 ) 11/17/2024 9:55 AM EDT Body Mass Index 27.44 11/17/2024 9:55 AM EDT Plan of Treatment Upcoming Encounters Date Type Department Care Team (Late st Contact Info) Description 01/08/2025 2:00 PM EDT Office Visit Adult Medicine [address] [phone] Lazarus Cordova MD [address] [place] [phone] Health Maintenance Due Date Last Done Comments Breast Cancer Screening 1955 Pneumococcal Vaccine: 50+ Years (1 of 2 - PCV) 02/29/1972 Zoster Vaccines (1 of 2) 09/03/2013 07/09/2013 DTaP,Tdap,and Td Vaccines (2 - Td or Tdap) 07/21/2020 07/21/2010 Colorectal Cancer Screening: Stool Based Tests (FOBT/FIT) 07/21/2022 Depression Screening 07/21/2022 Falls Risk Assessment 07/21/2022 Medicare Annual Wellness Visit 07/21/2022 Osteoporosis Screening (Bone Density Screening) 07/21/2022 Social Influencers of Health Screening 07/21/2022 COVID-19 Vaccine ( season) 2024 10/02/2021, 03/27/2021, 03/06/2021 Influenza Vaccine (Season Ended) 2025 04/19/2022, 05/26/2017, 05/13/2016, Additional history exists Hypertension/CHF/CAD Annual BMP Blood Test 06/19/2025 06/19/2024, 11/27/2023 RSV Immunization Adult Patients (1 - 1-dose 75+ series) 02/29/2028 Cholesterol Screening (Lipid Panel) 06/19/2029 06/19/2024, 11/27/2023 Hepatitis C Screening Completed 07/08/2013 HIB Vaccines Aged Out No longer eligi ble based on patient's age to complete this topic HPV Vaccines Aged Out No longer eligi ble based on patient's age to complete this topic Hepatitis A Vaccines Aged Out No long er eligible based on patient's age to complete this topic Hepatitis B Vaccines Aged Out No long er eligible based on patient's age to complete this topic IPV Vaccines Aged Out No longer eligi ble based on patient's age to complete this topic MMR Vaccines Aged Out No longer eligi ble based on patient's age to complete this topic Meningococcal ACWY Vaccine Aged Out N o longer eligible based on patient's age to complete this topic Meningococcal B Vaccine Aged Out No l onger eligible based on patient's age to complete this topic RSV Immunization Patients Under 20 months Aged Out No longer eligible based on patient's age to complete this topic Varicella Vaccines Aged Out No longer eligible based on patient's age to complete this topic Procedures Procedure Name Priority Date/Time Associated Diagnosis Comments XR CHEST 2 VIEWS Routine 11/17/2024 10:3 0 AM EDT Chest congestion STRESS ECHOCARDIOGRAM EXERCISE WITH CONTRAST Routine 11/06/2024 3:11 PM EDT SOB (shortness of breath) ECG 12-LEAD Routine 10/26/2024 2:46 PM EDT Abnormal echocardiogram ANNUAL BMP BLOOD TEST Routine 11/27/2023 LIPID PANEL Routine 11/27/2023 HEPATITIS C SCREENING Routine 07/08/2013 from Last 3 Months or Most Recently Relevant to Health Maintenance Results * XR Chest 2 Views (11/17/2024 10:30 AM EDT) Anatomical Region Laterality Modality Body Radiographic Michelle ging 11/17/2024 10:5 1 AM EDT Impressions 11/17/2024 10:56 AM EDT No acute cardiopulmonary abnormality. -------- FINAL REPORT -------- Dictated By: Franchesca Felipe Dictated Date: 11/17/2024 10:51 ET Assigned Physician: Franchesca Felipe Reviewed and Electronically Signed By: Franchesca Felipe Signed Date: 11/17/2024 10:56 ET Workstation ID: [id number] Transcribed By: Self Edit Transcribed Date: 11/17/2024 10:51 ET Narrative 11/17/2024 10:56 AM EDT XR CHEST 2 VIEWS Reason: Chest congestion and cough Comparison: Chest radiograph on April 21, 2017 FINDINGS: Lungs: No focal consolidation. ??Similar linear scarring in the left lung. Pleura: No pleural effusion or pneumothorax. Heart/Mediastinum: Cardiomediastinal silhouette is within normal limits. Bones : Anterior wedge deformity of the mid thoracic vertebrae are similar to prior study. Procedure Note Franchesca Felipe MD - 11/17/2024 XR CHEST 2 VIEWS Reason: Chest congestion and cough Comparison: Chest radiograph on April 21, 2017 FINDINGS: Lungs: No focal consolidation. Similar linear scarring in the leftlung. Pleura: No pleural effusion or pneumothorax. Heart/Mediastinum: Cardiomediastinal silhouette is within normal limits. Bones : Anterior wedge deformity of the mid thoracic vertebrae are similarto prior study. IMPRESSION: No acute cardiopulmonary abnormality. -------- FINAL REPORT -------- Dictated By: Franchesca Felipe Dictated Date: 11/17/2024 10:51 ET Assigned Physician: Franchesca Felipe Reviewed and Electronically Signed By: Frnachesca Felipe Signed Date: 11/17/2024 10:56 ET Workstation ID: [id number] Transcribed By: Self Edit Transcribed Date: 11/17/2024 10:51 ET us Jamaal YOUNG IMG XR PROCEDURES Final Result * STRESS ECHOCARDIOGRAM EXERCISE WITH CONTRAST (11/06/2024 3:11 PM EDT) BSA 1.92 m2 CV PACS STRESS Target HR 127 bpm CV PACS STRESS Baseline HR 79 bpm CV PACS STRESS Baseline SBP 154 mmHg CV PACS STRESS Baseline DBP 84 mmHg CV PACS STRESS Peak HR 128 bpm CV PACS STRESS Peak SBP 178 mmHg CV PACS STRESS Peak DBP 80 mmHg CV PACS STRESS Estimated workload 6.2 METS CV PACS STRESS Rate Pressure Product 22,784.0 mmHg*bpm CV PACS STRESS Percent HR 86 % CV PACS STRESS Exercise/injec tion duration (min) 4 min CV PACS STRESS Exercise/injec tion duration (sec) 0 sec CV PACS STRESS Max HR Percent 85 % CV PA CS STRESS Anatomical Region Laterality Modality Ultrasound Narrative 11/10/2024 3:15 PM EDT ?The study is negative and shows no echocardiographic evidence of ischemia. ?Normal wall motion, unchanged from baseline. ?Stress ECG was normal. ?Exercise stress test was performed. Exercise capacity was average. Normal blood pressure response. Left Ventricle Left ventricle cavity size is normal. Systolic function is normal with an ejection fraction of 55-60%. There are no regional LV wall motion abnormalities. Study Details Overall the study quality was technically difficult. Definity contrast was given to enhance imaging. Stress Findings A Carl protocol stress test was performed. Overall, the patient's exercise capacity was average. The patient reached stage 2. Total stress time was 4 min and 0 sec. The test was stopped because the patient experienced fatigue and shortness of breath. The patient achieved the target heart rate. The patient's hemodynamic response was adequate for diagnosis. Blood pressure demonstrated a normal response. Heart rate demonstrated a normal response. Onset of symptoms occurred at Stage 1 of the protocol. The patient reported shortness of breath and fatigue during the stress test. ECG 69-year-old female with past medical history of hypertension, crest syndrome and dyspnea on exertion who presents today for stress echocardiogram to rule out ischemia. She does not take any calcium channel blockers or beta-blockers. The ECG shows normal sinus rhythm. There were no arrhythmias during stress. There is no significant ST abnormalities during stress. There were no arrhythmias during recovery. The result of the stress ECG was negative for ischemia. Echo Post Stress Left ventricular cavity size decreased from baseline. Left ventricular systolic function improved from baseline. Systolic function is hyperdynamic with an ejection fraction over 70%. Normal wall motion, unchanged from baseline. Nuclear Measurements The study is negative and shows no echocardiographic evidence of ischemia. Procedure Note Bridget Baker NP / Axel Walters MD - 11/10/2024 ? ? The study is negative and shows no echocardiographic evidence ofischemia. ? ? Normal wall motion, unchanged from baseline. ? ? Stress ECG was normal. ? ? Exercise stress test was performed. Exercise capacity was average.Normal blood pressure response. Sally Melendez MD CV ECHO PROCEDURES Final Result * ECG 12 lead (10/26/2024 2:46 PM EDT) [facility] Ventricular Rate ECG 66 BPM GEMUSE Atrial Rate 66 BPM GEMUSE P-R Interval 114 ms GEMUSE QRS Duration 82 ms GEMUSE Q-T Interval 386 ms GEMUSE QTc 404 ms GEMUSE P Wave Meigs -69 degrees GEMUSE R Meigs 18 degrees GEMUSE T Meigs -132 degrees GEMUSE ECG Interpretation probably sinus rhythm Nonspecific ST and T wave abnormality Abnormal ECG When compared with ECG of 22-FEB-2009 14:57, No significant change was found Confirmed by Sabino MELENDEZ YUFENG ([id number]) on 10/26/2024 3:28:23 PM GEMUSE 10/26/2024 2:46 PM EDT 10/26/2024 3:28 PM EDT Sally Melendez MD ECG ORDERABLES Final Result GEMUSE * Annual BMP Blood Test (11/27/2023) [facility] Annual [facility] Blood Test abstracted Irina Johnson MD HEALTH MAINTENANCE Final Result * (ABNORMAL) Lipid panel (11/27/2023) [facility] LDL/HDL Ratio 6(A) 0 - 4 Triglycerides 337(A) 0 - 150 mg/dL Cholesterol 238(A) 0 - 200 mg/dL HDL 41 >=40 mg/dL LDL Cholesterol 130(A) 0 - 100 mg/dL Blood Venous blood specimen / Unknown Historical Provider LAB BLOOD ORDERABLES Amie l Result * Hepatitis C Screening (07/08/2013) Hepatitis C Screening abstracted Historical Provider HEALTH MAINTENANCE Final Result from Last 3 Months or Most Recently Relevant to Health Maintenance Insurance MEDICAID - [place] [employer] MEDICARE Care Teams Solar Manager Relationship Specialty Start Date End Date Lazarus Cordova MD [address] [place] [address] [phone] PCP - General Internal Medicine 10/12/24
== END 2024-12-10 14:19 | disposition home or self-care (01) ==
LOC: HO.MAMMO 14:18
PROVIDERS: PCP Family Medicine; Visit Provider Surgery
DX: Z85.3 Personal history of malignant neoplasm of breast (principal)
CPT/HCPCS: 77062; 77066

== ENCOUNTER → 2024-12-10 14:30 | Outpatient (BNV) | payer MEDICARE, SELFPAY | PROVIDERS: PCP Family Medicine; Visit Provider Internal Medicine | DX: Z85.3 Personal history of malignant neoplasm of breast (principal) | CPT/HCPCS: 77066; G0279 ==

== ENCOUNTER 2025-03-25 14:46 | Outpatient (AMB) | payer MEDICARE, MEDICAID, SELFPAY ==
--- OUTSIDE RECORDS SUMMARY | 2025-03-24 14:28 | XMS_ITS | Encounter Summary ---
Author Organization [facility] Address [address] [place] [address] Care Team Providers Care Lasting Floorworker Name Role Phone Lazarus Cordova MD Primary Care Pr ovider Reason for Referral * Imaging (Routine) - Authorized Specialty Diagnoses / Procedures Referred By Ryan kent Referred To Contact Radiology Diagnoses Calculus of kidney Unspecified renal colic Procedures CT Abdomen Pelvis wo Contrast Oscar Virk PA [address] [address] Phone: tel: fax: [facility] Referral ID Status Reason Start Date Expiration Date V isits Requested Visits Authorized [id number] Authorized 03/02/2025 03/02/2026 1 1 Reason for Visit * Imaging (Routine) - Authorized Specialty Diagnoses / Procedures Referred By Ryan kent Referred To Contact Radiology Diagnoses Calculus of kidney Unspecified renal colic Procedures CT Abdomen Pelvis wo Contrast Oscar Virk PA [address] [address] Phone: tel: fax: [facility] Referral ID Status Reason Start Date Expiration Date V isits Requested Visits Authorized [id number] Authorized 03/02/2025 03/02/2026 1 1 Encounter Details Date Type Department Care Team (Latest Contact Info) Description 03/24/2025 2:28 PM EDT - 03/24/2025 11:59 PM EDT Hospital Encounter [facility] CT Scan [address] [place] [address] Calculus of kidney; Unspecified renal colic Discharge Disposition: Home or Self Care Social History Tobacco Use Types Packs/Day Years Used Date Smoking Tobacco: Former Cigarettes 0.3 5.7 0 08/19/1977 - 04/14/1983 Smokeless Tobacco: Former Alcohol Use Standard Drinks/Week Comments No 0 (1 standard drink = 0.6 oz pur e alcohol) Housing Instability Answer Date Recorde d Are you worried that in the next 2 months you may not have stable housing? No 12/16/2024 Food Access & Nutrition Answer Date Rec orded Do you have access to a vari ety of food including fruits and vegetables? Yes 12/16/2024 Access to Healthcare Answer Date Record ed Within the last 3 months, ho w many times did you visit the emergency department for your medical care? 0 12/16/2024 Health Literacy Answer Date Recorded How often do you need to hav e someone help you when you read instructions, pamphlets, or other written material from your doctor or pharmacy? Never 12/16/2024 Caregiver: How often do you need to have someone help you when you read instructions, pamphlets, or other written material from your doctor or pharmacy? Not on file 12/16/2024 Financial Risk Answer Date Recorded How hard is it for you to pa y for the very basics like food, housing, medical care, and air conditioning / heating? Very hard 12/16/2024 Transportation Answer Date Recorded Has the lack of transportati on kept you from meetings, work, or from getting things needed for daily living? No Has the lack of transportati on kept you from medical appointments or from getting medications? No 12/16/2024 Social Isolation Answer Date Recorded How often do you feel lonely or isolated from those around you? Sometimes 12/16/2024 Food Risk Answer Date Recorded Within the past 12 months we worried whether our food would run out before we got money to buy more. Never true 12/16/2024 Within the past 12 months th e food we bought just didn t last and we didn t have money to get more. Not on file 12/16/2024 Dependent Care Answer Date Recorded Do you need help finding or paying for care for your loved ones. For example, child caregiver or elderly care for an older adult? No 12/16/2024 Education Answer Date Recorded Do you think completing more education or training, like finishing a GED, going to college, or learning a trade, would be helpful for you? No 12/16/2024 Employment and Income Answer Date Recor ded During the last four weeks, have you been actively looking for work? No 12/16/2024 Living Situation Answer Date Recorded What is your living situation? 0 12/16/2024 Comments No Sex and Gender Information Value Date Recorded Sex Assigned at Female 03/03/2025 12:47 PM EDT Legal Sex Female 10:06 PM EST Gender Identity Female 03/03/2025 12:47 PM EDT Sexual Orientation Straight 03/03/2025 12 :47 PM EDT documented as of this encounter Medications at Time of Discharge amoxicillin-clavula yesica (AUGMENTIN) 875-125 mg per tabletIndications:I nfected cyst of skin TAKE 1 TABLET BY MOUTH TWICE A DAY FOR 10 DAYS 20 tablet 12/17/2024 clindamycin (CLEOCIN T) 1 % gelIndications:Infe cted cyst of skin Apply to affected area twice a day 60 g 12/17/2024 6 fluticasone propionate (FLONASE) 50 mcg/actuation nasal sprayIndications:Al lergic rhinitis, unspecified seasonality, unspecified trigger Administer 1 spray into each nostril 2 (two) times a day. Shake gently. Before first use, prime pump. After use, clean tip and replace cap. 16 g 1 12/17/2024 6 levothyroxine (SYNTHROID, LEVOTHROID) 50 mcg tabletIndications:P ostoperative hypothyroidism Take 1 tablet (50 mcg total) by mouth 1 (one) time each day. 90 tablet 1 12/17/2024 lisinopriL (PRINIVIL,ZESTRIL) 5 mg tabletIndications:E ssential hypertension Take 1 tablet (5 mg total) by mouth 1 (one) time each day. 90 tablet 1 12/17/2024 metoprolol tartrate (LOPRESSOR) 25 mg tablet Take 0.5 tablets (12.5 mg total) by mouth 2 (two) times a day. 30 each 11 11/13/2024 multivitamin with minerals (MULTIPLE VITAMIN-MINERALS ORAL) Take by mouth daily. pravastatin (PRAVACHOL) 10 mg tabletIndications:M ixed hyperlipidemia Take 1 tablet (10 mg total) by mouth 1 (one) time each day. 90 each 1 12/17/2024 documented as of this encounter Discharge Disposition Disposition Code Departure Means Destination Home or Self Care documented in this encounter Plan of Treatment Upcoming Encounters Date Type Department Care Team (Late st Contact Info) Description 04/13/2025 1:30 PM EDT Ancillary Procedure [facility] [address] [place] [address] 04/27/2025 2:30 PM EDT Appointment [facility] Bone Density [address] [place] [id number] documented as of this encounter Procedures Procedure Name Priority Date/Time Associated Diagnosis Comments CT ABDOMEN PELVIS WO CONTRAST Routine 03/24/2025 2:40 PM EDT Calculus of kidney Unspecified renal colic documented in this encounter Results * CT Abdomen Pelvis wo Contrast (03/24/2025 2:40 PM EDT) Anatomical Region Laterality Modality Body Computed Tomogra phy 03/24/2025 2:51 PM EDT Impressions 03/24/2025 3:01 PM EDT Chronic irregular areas of focal volume loss in each kidney suggesting scarring perhaps related to previous infection. Nonobstructing renal calculi. No definite ureteral calculus. No acute GI tract abnormality. -------- FINAL REPORT -------- Dictated By: Raul Smith Dictated Date: 03/24/2025 14:51 ET Assigned Physician: Raul Smith Reviewed and Electronically Signed By: Raul Smith Signed Date: 03/24/2025 15:01 ET Workstation ID: [id number] Transcribed By: Self Edit Transcribed Date: 03/24/2025 14:51 ET Narrative 03/24/2025 3:01 PM EDT EXAMINATION: CT ABDOMEN/PELVIS WITHOUT IV CONTRAST CLINICAL INFORMATION: Calculus of kidney. Renal colic COMPARISON: Selected portions of previous 05/04/11 TECHNIQUE: Multidetector CT. Helical examination of the abdomen and pelvis. Imaging performed without IV contrast. Reformatting in the coronal and sagittal planes. DLP: 844 mGy-cm Dose optimization was performed including the use of low-dose iterative reconstruction technique with automatic exposure control based on patient size. Type of contrast: None Volume of IV contrast: None Volume of contrast discarded: 0 mL FINDINGS: LIVER: The liver is normal in size, shape, and attenuation. No focal hepatic lesion or biliary ductal dilatation is present. No additional liver findings. BILIARY TRACT: There are clips in the expected region of the gallbladder. There is no biliary dilation. SPLEEN: Normal size. No focal lesion. PANCREAS: No suspicious abnormality. ADRENAL GLANDS: No suspicious abnormality. KIDNEYS: There are is irregular renal contours. There are focal areas of cortical loss bilaterally. There is a 0.5 cm calculus in the upper pole of the right kidney 9.4 cm from the skin. There is a punctate nonobstructing lower pole right renal calculus. There is some faint hyperdensity in the upper pole of the left kidney. There is no significant dilation of the urinary collecting system on either side. There is an exophytic circumscribed 2.9 cm mass arising from the posterolateral right kidney with fluid attenuation. This has increased in size. URINARY BLADDER: The bladder is nearly empty. No suspicious abnormality. PELVIC VISCERA: The uterus is not demonstrated and is likely surgically absent. There is no suspicious adnexal mass or collection. GASTROINTESTINAL TRACT: There are numerous colonic diverticula. No localized pericolonic fat stranding. There is some mural stratification of the proximal colon. No surrounding stranding. No small bowel dilation. No suspicious abnormality of the stomach. ABDOMINAL WALL: No significant hernia is appreciated. LYMPHOVASCULAR STRUCTURES AND FLUID: There is no abdominal aortic aneurysm. There are no measurably enlarged lymph nodes. There is no free intraperitoneal fluid. VISUALIZED LOWER CHEST: No suspicious abnormality. There is some skin thickening in the right breast. MUSCULOSKELETAL: No acute or suspicious osseous abnormality. There are degenerative changes with near obliteration of the L5/S1 disc with some ossific or calcific density posteriorly. Procedure Note Raul Smith MD - 03/24/2025 EXAMINATION: CT ABDOMEN/PELVIS WITHOUT IV CONTRAST CLINICAL INFORMATION: Calculus of kidney. Renal colic COMPARISON: Selected portions of previous 05/04/11 TECHNIQUE: Multidetector CT. Helical examination of the abdomen and pelvis. Imaging performed without IV contrast. Reformatting in the coronal and sagittal planes. DLP: 844 mGy-cm Dose optimization was performed including the use of low-dose iterativereconstruction technique with automatic exposure control based on patientsize. Type of contrast: None Volume of IV contrast: None Volume of contrast discarded: 0 mL FINDINGS: LIVER: The liver is normal in size, shape, and attenuation. No focalhepatic lesion or biliary ductal dilatation is present. No additionalliver findings. BILIARY TRACT: There are clips in the expected region of the gallbladder.There is no biliary dilation. SPLEEN: Normal size. No focal lesion. PANCREAS: No suspicious abnormality. ADRENAL GLANDS: No suspicious abnormality. KIDNEYS: There are is irregular renal contours. There are focal areas ofcortical loss bilaterally. There is a 0.5 cm calculus in the upper pole ofthe right kidney 9.4 cm from the skin. There is a punctate nonobstructinglower pole right renal calculus. There is some faint hyperdensity in theupper pole of the left kidney. There is no significant dilation of the urinary collecting system oneither side. There is an exophytic circumscribed 2.9 cm mass arising from theposterolateral right kidney with fluid attenuation. This has increased insize. URINARY BLADDER: The bladder is nearly empty. No suspiciousabnormality. PELVIC VISCERA: The uterus is not demonstrated and is likely surgicallyabsent. There is no suspicious adnexal mass or collection. GASTROINTESTINAL TRACT: There are numerous colonic diverticula. Nolocalized pericolonic fat stranding. There is some mural stratification ofthe proximal colon. No surrounding stranding. No small bowel dilation. No suspicious abnormality of the stomach. ABDOMINAL WALL: No significant hernia is appreciated. LYMPHOVASCULAR STRUCTURES AND FLUID: There is no abdominal aorticaneurysm. There are no measurably enlarged lymph nodes. There is no freeintraperitoneal fluid. VISUALIZED LOWER CHEST: No suspicious abnormality. There is some skinthickening in the right breast. MUSCULOSKELETAL: No acute or suspicious osseous abnormality. There aredegenerative changes with near obliteration of the L5/S1 disc with someossific or calcific density posteriorly. IMPRESSION: Chronic irregular areas of focal volume loss in each kidney suggestingscarring perhaps related to previous infection. Nonobstructing renal calculi. No definite ureteral calculus. No acute GI tract abnormality. -------- FINAL REPORT -------- Dictated By: Raul Smith Dictated Date: 03/24/2025 14:51 ET Assigned Physician: Raul Smith Reviewed and Electronically Signed By: Raul Smith Signed Date: 03/24/2025 15:01 ET Workstation ID: [id number] Transcribed By: Self Edit Transcribed Date: 03/24/2025 14:51 ET Oscar [facility]NG IMG CT PROCEDURES Final Result documented in this encounter Visit Diagnoses Diagnosis Calculus of kidney Unspecified renal colic documented in this encounter Additional Health Concerns Assessment Noted Time PHQ-9 Depression Total Score: 0 12/17/19 25 9:40 PM EDT documented as of this encounter Care Teams Lasting Floorworker Relationship Specialty Start Date End Date Lazarus Cordova MD [address] [place] [id number] PCP - General Internal Medicine 10/12/24 documented as of this encounter
--- NOTE | 2025-03-25 14:49 | MHC.OFFVIS ---
Vital Signs 03/25/25 14:58 Height 5 ft 6 in Weight 171 lb 4 oz BMI 27.6 BP 160/72 H Blood Pressure Location Lt brachial Position Sitting Pulse 71 Intake Visit Reasons: 6 month breast exam Intake Note: Patient is seen in office for 6 month follow up visit, breast exam. Pt c/o: mm:12/10/24 Special Technical Operations Officer Required: No Allergies latex Allergy (Intermediate, Verified 03/25/25 14:56) Rash Medication List - Last Reconciled 03/25/25 by Chris Caruso MD lisinopril 5 mg PO DAILY HPI Comments Details: 70-year-old female patient presenting with a screening mammogram dated 09/27/2021 with follow-up views and ultrasound obtained on 10/10/2021 which revealed a new spiculated mass in the right breast at the 930 location approximately 7 cm from the nipple. In addition a cluster of calcifications was also identified in the right breast. Both areas were felt to be suspicious for malignancy and biopsy recommended. The density was identified by ultrasound as well. Patient denies any palpable mass, skin change, nipple discharge, or enlarged lymph nodes. She denies a previous history of breast problems or breast surgery. She is . She reports breast-feeding both children. Her family history is negative for breast cancer. A stereotactic guided core biopsy and ultrasound-guided core biopsy was performed on 11/07/2021 at the [facility]. Pathology revealed: A.? Breast, right calcifications, biopsy:? Benign breast tissue with fibroadenomatous change and calcifications; no atypia or malignancy identified. B.? Breast, right mass at 9 o'clock, biopsy:??Invasive ductal carcinoma, MSBR grade 1.? ER/NH positive, HER2 Gabby negative, proliferation index 10% overall by Ki-67 immunostaining. She underwent a lumpectomy with needle localization, sentinel node biopsy on 11/27/2021. Pathology confirmed invasive ductal carcinoma 1.5 cm in diameter, grade 2, 2 sentinel nodes negative for metastatic disease negative margins with the closest margin being 0.8 cm from the superior margin. She tolerated the procedure well and denies any ongoing symptoms other than some swelling in the right arm. She was evaluated by Dr. Marie from [facility] on 12/14/2021 and started on letrozole 2.5 mg q.day for 5 years. Patient declined the medication due to the risk of joint pain which she states she already suffers from. She underwent radiation therapy at [facility] developed a severe skin burn there for the treatment was stopped. Follow-up mammogram on 10/10/2022 as well as targeted ultrasound of the left breast reveals a region of asymmetric density in the superior aspect of the left breast. Targeted ultrasound did not demonstrate any abnormal cystic or solid mass. The lesion was regarded as low suspicion (BI-RADS 3) and diagnostic mammogram feet in 6 months recommended. She subsequent underwent a left breast diagnostic mammogram on 05/13/2023. This revealed no persistent suspicious mammographic findings. This was felt to be probably benign and routine screening bilateral mammography recommended in 6 months. Her most recent mammogram dated 12/10/2024 revealed no significant change from the prior mammogram with no suspicious changes (BI-RADS 2). She denies any new breast symptoms in either breast. [facility] Medical History History of MRSA infection COVID-19 vaccine series completed Invasive ductal carcinoma of right breast Breast calcification, right Hyponatremia Mixed dyslipidemia Acquired hypothyroidism Pneumococcal vaccination declined Refused influenza vaccine Mixed hearing loss Degenerative disc disease, cervical Pulmonary nodule seen on imaging study Annual visit for general adult medical examination with abnormal findings Sleeping difficulties Hypertension CREST syndrome Nephrolithiasis Gout Hypertriglyceridemia Hypothyroidism Surgical History History of vein stripping History of lumpectomy of right breast (11/27/21) H/O colonoscopy History of tubal ligation History of hysterectomy History of cholecystectomy History of bladder surgery History of partial thyroidectomy Family History Brother No problems noted. Daughter Mental health disorder Son Mental health disorder Paternal Grandmother Colon cancer Maternal Aunt Breast cancer Social History Household Members: None Housing: House Are you a primary medical care manager to a significant other at home: No Do you presently have visiting nurse or other home services: No Patient Tobacco Use Status: Former Tobacco user Tobacco use type: Cigarette Years Smoked: 10yrs e-Cigarette/Vaping Use: Never Used service: No Current occupational status: retired Cognitive needs: No Hearing needs: No Vision needs: No Female Reproductive History Menstrual Age of Menarche: 11 Review of Systems Const All systems reviewed & are unremarkable except as noted in HPI and below Physical Exam Const General: comfortable and no acute distress Nutritional Appearance: well nourished Orientation/consciousness: patient oriented x3 Limitations: no limitations Chest Other: Right breast: Well-healed incision in the upper outer quadrant and axilla with no new skin changes. Mild edema especially in the lower inner quadrant. No palpable mass, skin change or nipple discharge appreciated. No enlarged lymph nodes. Left breast: No skin change, nipple discharge, palpable mass, or enlarged lymph nodes. Resp Other: Breathing comfortably on room air, no respiratory distress Skin Other: Warm, dry, no rash Neuro Other: Mobility Assessment: 1. 3 meter assessment time (seconds) 5 2. Gait observations: Normal balance and gait General: patient oriented x3 Extrem Other: No cyanosis, clubbing, mild edema in the right arm below the axilla. No erythema is appreciated. Assessment & Plan Assessment & Plan (1) Invasive ductal carcinoma of right breast: Code(s): C50.911 - Malignant neoplasm of unspecified site of right female breast Category: Medical Plan 70-year-old female patient found to have invasive ductal carcinoma of the right breast status post lumpectomy with needle localization and sentinel node biopsy on 11/27/2021. She is followed by Dr. Marie and completed radiation therapy at [facility]. She has decline letrozole is currently and no antiestrogen medication. Examination today reveals mild lymphedema involving the right breast. No new palpable mass, or enlarged lymph nodes are appreciated. She underwent follow-up mammogram on 10/10/2022 with low suspicion findings. She underwent follow-up left diagnostic mammograms on 05/13/2023. This revealed no persistent suspicious mammographic findings. Findings were felt to be probably benign and routine bilateral screening mammography was recommended in 6 months. Her most recent mammogram dated 12/10/2024 revealed no significant change and no suspicious changes (BI-RADS 2). I recommended follow-up examination in 1 year sooner PRN. Coding Level of Care Code Est Pt Level 3 (51631) Complex EM visit Add On G2211 Diagnoses Invasive ductal carcinoma of right breast C50.911
--- OUTSIDE RECORDS SUMMARY | 2025-03-25 14:49 | XMS_ITS | Clinical Summary ---
Author Organization [facility] Address [address] [facility] [address] [place] [address] Phone Care Team Providers Care Patient Transporter Name Role Phone Deanna Tidwell MD Primary Care Provider [phone] Allergies Active Allergy Reactions Criticality Noted Date [...] Colorectal Cancer Screening: Sigmoidoscopy 2002 Influenza Vaccine (#1) 2025 7, 05/13/2016, 05/16/2015, Additional history exists Hepatitis B Vaccine Aged Out No longe r eligible based on patient's age to complete this topic Insurance [employer] ([id number]) [employer] ([id number]) Care Teams Patient Transporter Relationship Specialty Start Date End Date Deanna Tidwell MD [address] [place] [id number] PCP - General Internal Medicine 11/16/21
--- OUTSIDE RECORDS SUMMARY | 2025-03-25 14:49 | XMS_ITS | Encounter Summary ---
Author Organization [facility] Address [address] [place] [phone] Phone Care Team Providers Care Recreation Facility Attendant Name Role Phone Magui Tidwell MD Primary Care Provider Encounter Details Date Type Department Care Team (Late st Contact Info) Description 12/18/2021 Ancillary Orders [facility],Outside Imaging [address] [place] [address] System, Provider Not In, [facility] [address] [address] Social History Tobacco Use Types Packs/Day Years Used Date Smoking Tobacco: Never Assessed Comments Unknown Sex and Gender Information Value Date Recorded Sex Assigned at Not on file Legal Sex Female 11:58 AM EDT Gender Identity Not on file Sexual Orientation Not on file documented as of this encounter Plan of Treatment Not on file documented as of this encounter Results * NM Other Outside (No Interpretation) (11/27/2021 12:05 AM EDT) Narrative SYSTEMGENERATED, DOCUMENTATION - 12/18/2021 12:02 PM EDT This study is for PACS storage only and not for interpretation. us Provider Not In System [facility] OUTSIDE IMAGING W /OUT INTERPRETATION Final Result * Mammogram Outside (No Interpretation) (11/27/2021 12:00 AM EDT) Narrative SYSTEMGENERATED, DOCUMENTATION - 12/18/2021 12:01 PM EDT This study is for PACS storage only and not for interpretation. us Provider Not In System PhD [facility] OUTSIDE IMAGING W /OUT INTERPRETATION Final Result * Mammogram Outside (No Interpretation) (11/07/2021 12:10 AM EDT) Narrative SYSTEMGENERATED, DOCUMENTATION - 12/18/2021 12:04 PM EDT This study is for PACS storage only and not for interpretation. us Provider Not In System PhD [facility] OUTSIDE IMAGING W /OUT INTERPRETATION Final Result * Mammogram Outside (No Interpretation) (11/07/2021 12:05 AM EDT) Narrative SYSTEMGENERATED, DOCUMENTATION - 12/18/2021 12:03 PM EDT This study is for PACS storage only and not for interpretation. us Provider Not In System [facility] OUTSIDE IMAGING W /OUT INTERPRETATION Final Result * US Breast Outside (No Interpretation) (11/07/2021 12:00 AM EDT) Narrative SYSTEMGENERATED, DOCUMENTATION - 12/18/2021 12:02 PM EDT This study is for PACS storage only and not for interpretation. us Provider Not In System [facility] OUTSIDE IMAGING W /OUT INTERPRETATION Final Result * US Breast Outside (No Interpretation) (11/02/2021 12:00 AM EDT) Narrative SYSTEMGENERATED, DOCUMENTATION - 12/18/2021 12:04 PM EDT This study is for PACS storage only and not for interpretation. us Provider Not In System PhD [facility] OUTSIDE IMAGING W /OUT INTERPRETATION Final Result * Mammogram Outside (No Interpretation) (10/10/2021 12:00 AM EST) Narrative SYSTEMGENERATED, DOCUMENTATION - 12/18/2021 12:05 PM EDT This study is for PACS storage only and not for interpretation. us Provider Not In System PhD [facility] OUTSIDE IMAGING W /OUT INTERPRETATION Final Result * Mammogram Outside (No Interpretation) (09/27/2021 12:00 AM EST) Narrative SYSTEMGENERATED, DOCUMENTATION - 12/18/2021 12:05 PM EDT This study is for PACS storage only and not for interpretation. us Provider Not In System PhD [facility] OUTSIDE IMAGING W /OUT INTERPRETATION Final Result * Mammogram Outside (No Interpretation) (09/29/2015 12:00 AM EST) Narrative SYSTEMGENERATED, DOCUMENTATION - 12/18/2021 12:06 PM EDT This study is for PACS storage only and not for interpretation. us Provider Not In System PhD [facility] OUTSIDE IMAGING W /OUT INTERPRETATION Final Result * Mammogram Outside (No Interpretation) (09/09/2014 12:00 AM EST) Narrative SYSTEMGENERATED, DOCUMENTATION - 12/18/2021 12:06 PM EDT This study is for PACS storage only and not for interpretation. us Provider Not In System PhD [facility] OUTSIDE IMAGING W /OUT INTERPRETATION Final Result * Mammogram Outside (No Interpretation) (02/01/2014 12:00 AM EDT) Narrative SYSTEMGENERATED, DOCUMENTATION - 12/18/2021 12:07 PM EDT This study is for PACS storage only and not for interpretation. us Provider Not In System PhD [facility] OUTSIDE IMAGING W /OUT INTERPRETATION Final Result documented in this encounter Visit Diagnoses Not on filedocumented in this encounter Care Teams Recreation Facility Attendant Relationship Specialty Start Date End Date Magui Tidwell MD [facility] [place] [address] [place] [address] PCP - General Internal Medicine 12/15/21 documented as of this encounter Additional Source Comments The information contained in this document represents components of the legal health record. It is not the complete legal health record.[facility]
--- OUTSIDE RECORDS SUMMARY | 2025-03-25 14:49 | XMS_ITS | Patient Health Record ---
Author Organization [facility] Address [address] [place] [id number] Care Team Providers Care House Mover Helper Name Role Phone Cristiana (RETIRED) Shahriar TURCIOS Primary Care Provide r Wing Calvillo Unavailable [phone] Allergies Allergen (clinical drug ingredient) Drug/Non Drug Allergy documented on EMR Reaction Allergy Type Onset Date Status Latex Latex Unknown Allergy Active Reason For Referral No Information Medications Medication SIG (Take, Route, Frequency, Duration) Notes Start Date End Date Status Levothyroxine Sodium 50 MCG Oral for 90 Active Fish Oil 500 MG 2 Orally Twice a day Active Lisinopril 5 MG Oral for 90 Ac tive Immunizations Vaccine Route Administration Date Status Comme nts Influenza Unknown 04/19/2022 Administered Social History Tobacco Use: Social History Observation Description Date Details (start date - stop date) Never Smoker NA - NA Tobacco Use/Smoking Question Answer Notes Patient is a nonsmoker Alcohol Screen Question Answer Notes Did you have a drink containing alcohol in the p ast year? No Points 0 Interpretation Negative Section Notes: Nonsmoker; no sig alcohol Problems Problem Type SNOMED Code ICD Code Onset Dates Problem Status W/U Status Risk Notes Problem 075396373 Blood in stool (K92.1) Active confirmed Problem 973069308115869 Preprocedural examination (Z01.818) Active confirmed Problem 417767383 Screening for colon cancer (Z12.11) Active confirmed Problem 041238878 Hx of adenomatou s colonic polyps (Z86.010) Active confirmed Plan Of Treatment Future Test Test Name Order Date COLONOSCOPY 10/02/2022 Insurance Providers Payer Name Payer Address Payer Phone Subscriber Number Group Number Insured Name Patient Relationship to Insured Coverage Start Date Coverage End Date [employer] [address] [address] [place] [address] [id number] NOA THURMAN Self - patient is the insured 3 Medical (General) History Medical History History ICD Code Hypertension Breast cancer-11/2021--lumpectomy, XRT Kidney stones Raynaud's and 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 Kee with r emoval of 1 small tubular adenoma Denies DE,DM,CVA,Lung disease,renal dise ase Hyperlipidemia Surgical History Surgery Date(Month/Year) Breast cancer as above--Dr. Caruso 2 Thyroid--partial left thyroidectomy 1991 Bladder 1986 Bladder suspension 2014 Hysterectomy with BSO Vein stripping x2
[2025-03-25 14:58] VITALS: BP 160/72; PULSE 71; BMI 27.6
== END 2025-03-25 15:44 | disposition home or self-care (01) ==
PROVIDERS: PCP Family Medicine; Visit Provider Surgery
DX: C50.911 Malignant neoplasm of unspecified site of right female breast (principal)
CPT/HCPCS: 99213; G2211

== ENCOUNTER → 2025-03-25 14:46 | Outpatient (BNVA) | payer MEDICARE, SELFPAY | PROVIDERS: PCP Family Medicine; Visit Provider Surgery | DX: C50.411 Malignant neoplasm of upper-outer quadrant of right female breast (principal); I89.0 Lymphedema, not elsewhere classified | CPT/HCPCS: 99212 ==